=== PATIENT | female | born 1990 | race Caucasian/White ===

== ENCOUNTER → 2018-09-07 13:38 | Outpatient (CLI) | payer OTHER, MEDICAID, SELFPAY ==
--- NOTE | 2018-09-07 13:39 | DI.US.S_ITS ---
LIMITED ULTRASOUND OF LEFT BREAST: 09/07/2018 CLINICAL: Palpable left breast lump. No prior exams were available for comparison. Real-time ultrasound of the left breast 12 o'clock region was performed on the area of interest. IMPRESSION: NEGATIVE There is no sonographic evidence of malignancy. There is no abnormality seen in the left breast to correspond with the palpable abnormality at 12 o'clock, however, clinical followup is recommended. This exam was interpreted at Station ID: [id number]. Electronically Signed By: Lester lopez/kobi:09/07/2018 16:54:03 letter sent: Clinical Evaluation Ultrasound BI-RADS: 1 Negative
--- NOTE | 2018-09-07 13:40 | DI.RAD.S_ITS ---
PROCEDURE: XR HIP W PEL IF DONE RT 2V INDICATIONS: Right hip pain, FH of hip dyspasia TECHNIQUE: AP pelvis with lateral view(s) of the right hip(s). COMPARISON: None. FINDINGS: Bones: No fractures or dislocations. Pelvic ring appears intact. No suspicious bony lesions. No evidence of hip dysplasia. Normal center edge angle. Soft tissues: The visualized bowel gas pattern is normal. No suspicious soft tissue calcifications. Incidental IUD IMPRESSION: Minimal degenerative spurring and subchondral sclerosis, probably age appropriate. No evidence of hip dysplasia. Dictated by: Star Guadarrama M.D. on 09/07/2018 at 14:28 Approved by: Star Guadarrama M.D. on 09/07/2018 at 14:33
[2018-09-07 15:27] LABS: Add Manual Diff / Slide Review NO; Basophils Percent Auto 0.6 % (0-2); Eosinophils Percent Auto 0.9 % (2-4); Hematocrit 39.4 % (36-46); Hemoglobin 12.8 g/dL (12.0-16.0); Lymphocytes Percent Auto 21.1 % (25-40); Mean Corpuscular HGB Conc 32.5 % (30-36); Mean Corpuscular Hemoglobin 30.6 PG (26-34); Mean Corpuscular Volume 94.3 fL (80-100); Monocytes Percent Auto 7.4 % (3-14); Neutrophils Absolute Auto 6300 /uL (3000-5900); Platelet Count 283 X10^3/uL (150-400); Red Blood Cell Count 4.18 X10^6/uL (4.0-5.2); Red Cell Distribution Width 13.1 % (11.6-14.8)
[2018-09-07 15:43] LABS: Alanine Aminotransferase 28 IU/L (9-52); Albumin 4.8 g/dL (3.5-5.0); Albumin Globulin Ratio 1.8 (1.0-2.8); Alkaline Phosphatase 40 U/L (38-126); Aspartate Aminotransferase 22 IU/L (14-36); BUN Creatinine Ratio 18.3 (6-22); Bilirubin Total 0.4 mg/dL (0.2-1.3); Blood Urea Nitrogen 11 mg/dL (7-17); Calcium 9.2 mg/dL (8.4-10.2); Carbon Dioxide 27 mmol/L (22-32); Chloride 104 mmol/L (98-107); Estimated Glomerular Filt Rate > 60.0 mL/min (>60); Globulin 2.6 g/dL (1.7-4.1); Glucose 80 mg/dL (70-100); HEMOLYSIS < 15 (0-50); Potassium 3.6 mmol/L (3.4-5.1); Sodium 145 mmol/L (137-145); Total Protein 7.4 g/dL (6.3-8.2)
[2018-09-07 16:35] LABS: TSH w/ Reflex to FT4 0.76 uIU/mL (0.47-4.68)
== END ==
PROVIDERS: Family Provider Family Medicine; PCP Family Medicine; Visit Provider Registered Nurse
DX: N63.20 Unspecified lump in the left breast, unspecified quadrant (principal); M25.551 Pain in right hip; F41.9 Anxiety disorder, unspecified; R53.83 Other fatigue
CPT/HCPCS: 36415; 73502; 76642; 80053; 84443; 85025

== ENCOUNTER 2018-12-27 12:45 | Outpatient (RCR) | payer OTHER, MEDICAID, SELFPAY ==
--- NOTE | 2018-10-24 14:30 | PT.OIE ---
Current Diagnoses Lesion of sciatic nerve, right lower limb (10/24/18) Pain in unspecified hip (10/24/18) Muscle weakness (generalized) (10/24/18) Past Medical History (Last Reviewed 08/11/18 @ 14:37 by Silvia Eldridge DO) Acne (Chronic) Ankle pain (Chronic ~2007) Asthma (Chronic) Eczema (Chronic ~2013) Vision disorder (Chronic) Vaginal delivery (Resolved) Past Surgical History (Last Reviewed 08/11/18 @ 14:37 by Silvia Eldridge DO) Anesthesia (Resolved) History of tonsillectomy (Resolved) Provider Visit Care Team Role Provider Type Silvia Eldridge DO Attending Provider Physician Primary Care Provider Specialty: [facility] Practice Address: [address] [place] [address], [facility] Email: [email or web address] Physical Therapy Initial Evaluation PT-OP-A Visit Information Start: 10/25/18 09:38 Freq: Status: Active Protocol: Document 10/24/18 13:45 DCW (Rec: 10/25/18 10:19 [facility] [id number]) Out-Patient Physical Therapy Visit Information Visit Information Visit Type Initial Evaluation Visit Start Time 13:45 Visit Stop Time 14:30 Total Visit Minutes 45 Visit Number 1 Number of SECURITY AUDITOR Visits 0 Evaluation Information Evaluation Date 10/24/18 PT-OP-B Current Condition Start: 10/25/18 09:38 Freq: Status: Active Protocol: Document 10/24/18 13:45 DCW (Rec: 10/25/18 10:19 [facility] [id number]) Current Condition History of Current Condition Onset Date 5 year history Current Complaints Posterior right hip pain with associated radicular right leg symptoms History of Current Condition Pt is a 28 year old female who reports she began having occasional right hip pain periodically following the of her first child five years ago. Pt admits that she is able to work through the pain and do what I need to, but when she has a flare-up, it is difficult to hold her one-year old son or to walk around too much. Pt notes that recently, she has noticed increased frequency of flare- ups, which can last up to a week, or she can go three weeks without any pain. Patient feels pain go from my back hip to my groin, and also notes radiating pain down to her knee and ankle. Pt notes that prior to giving last year, she was seen at this clinic for hip and back pain, and has continued to perform her HEP from then, which includes cat/camel, child's pose, and adductor ball squeeze. Treatment Goals Patient/Caregiver Goals Pt would like to decrease frequency of flare-ups, and to be able to walk and hold her son without worrying about increased pain. Prior Functional Status Baseline Function- ADL's Independent Baseline Function- Mobility Independent Current Functional Impairments (Reported) Functional Limitations- ADL's Housework will occasionally cause flare-ups, as well as pushing her son on a bike PT-OP-C Subjective Start: 10/25/18 09:38 Freq: Status: Active Protocol: Document 10/24/18 13:45 DCW (Rec: 10/25/18 10:19 [facility] [id number]) OP-PT Pain Assessment Pain Assessment Grid Paper Pain Assessment Grid Completed Yes Location Right Posterior Hip Intensity 7 Scale Used Numeric (1 - 10) Description Aching Sharp Shooting Frequency Occasional Radiating Location Right knee and ankle Pain Alleviating Factors Heat PT-OP-F Manual Assessment Start: 10/25/18 09:38 Freq: Status: Active Protocol: Document 10/24/18 13:45 DCW (Rec: 10/25/18 10:19 [facility] [id number]) Manual Assessments Soft Tissue Assessment Soft Tissue Mobility Assessment Mild tone and 1/4 - Complaint of pain with palpation of right Quadratus Lumborum Severe tone and 3/4 - Wincing and withdraw with palpation of right Piriformis Joint Mobility Assessment Joint Mobility Assessment No pain with palpation of SI or lumbar spine, no pain with hip PROM, loud popping bilaterally in hips with PROM PT-OP-L Special Tests Start: 10/25/18 09:38 Freq: Status: Active Protocol: Document 10/24/18 13:45 DCW (Rec: 10/25/18 10:19 [facility] [id number]) Special Tests Lumbar Spine Special Tests Compression Test Results Negative Straight Leg Raise Test Results Pain in R Slump Test Results Pain in R Hip Special Tests Piriformis Test Results Recreates radicular pain with palpation Lateral SI compression Test Results Negative LILIA Test Results Negative Comments Joint popping bilaterally PT-OP-M Strength Start: 10/25/18 09:38 Freq: Status: Active Protocol: Document 10/24/18 13:45 DCW (Rec: 10/25/18 10:19 [facility] [id number]) Hip Strength Hip Manual Muscle Testing Right Flexion (L2) 5 Normal Abduction 4 Good Adduction 5 Normal External Rotation 4 Good Internal Rotation 4 Good Left Flexion (L2) 5 Normal Abduction 4+ Good+ Adduction 5 Normal External Rotation 4+ Good+ Internal Rotation 4+ Good+ Knee Strength Knee Manual Muscle Testing Right Flexion (S2) 4 Good Extension (L3) 4+ Good+ Left Flexion (S2) 4 Good Extension (L3) 4+ Good+ Ankle/Foot Strength Ankle and Foot Manual Muscle Testing Right Dorsiflexion (L4) 4+ Good+ Plantarflexion (S1) 4+ Good+ Left Dorsiflexion (L4) 4+ Good+ Plantarflexion (S1) 4+ Good+ PT-OP-Q Treatments Start: 10/25/18 09:38 Freq: Status: Active Protocol: Document 10/24/18 13:45 DCW (Rec: 10/25/18 10:19 [facility] [id number]) Therapeutic Exercises Supine Exercises Piriformis Stretch Supine Exercise Name Figure-4, Yyxz-cj-Ztbraapg Shoulder Side right Sidelying Exercises Reverse Clamshell Sidelying Exercise Name Reverse Clamshell Side right Clamshell Sidelying Exercise Name Clamshell Side right Sitting Exercises Piriformis Stretch Sitting Exercise Name Seated Figure-4 Side right PT-OP-T Assessment and Plan Start: 10/25/18 09:38 Freq: Status: Active Protocol: Document 10/24/18 13:45 DCW (Rec: 10/25/18 10:19 [facility] [id number]) Physical Therapy Assessment Rehab Potential Rehabilitation Potential Excellent Evaluation Complexity Number of Personal Factors/Comorbidities 1-2 Number of Body Systems Impaired 1-2 Clinical Presentation at Evaluation Unstable Impairments Impairments Pain Soft Tissue Mobility Tone Goals Four Impairment Tenderness to palpation Fci Goal (LTG) Palpation of piriformis to 1/4 - Complaint of pain Three Impairment LE weakness Fci Goal (LTG) LE MMT grossly 5/5 LTG Duration 12/25/18 Two Impairment Activity participation Short Term Goal (STG) Pt to report no increased pain with housework over a period of two weeks STG Duration 11/24/18 Tobacco Weigher Goal (LTG) Pt to report no increase pain when pushing her son on a bike over a period of one month LTG Duration 12/25/18 One Impairment Pt does not have an appropriate home exercise program Short Term Goal (STG) Pt to be independent and complaint with an appropriate HEP STG Duration 11/24/18 Assessment Summary Assessment Pt presents with signs and symptoms consistent with Piriformis syndrome. Differential Dx may also be SI dysfunction, especially due to the instigating factor seemingly being childbirth, however no pain could be reproduced at the SI joint with any special testing, palpation, or mobilization of the SI joint. Additionally, pt has severe tone through her right piriformis, and feels some relief with piriformis stretching. Pt should benefit from skilled therapy focusing on manual therapy, flexibility to decrease tone, and improving hip strength. Physical Therapy Plan Frequency and Duration Frequency of Treatment 2x/Week Duration of Treatment 2 Months Plan of Care Start Date 10/24/18 Plan of Care End Date 12/25/18 Therapeutic Interventions Therapeutic Interventions Home Exercise Program Joint Mobilizations Manual Therapy Patient/Caregiver Education Self-Care/Home Management Soft Tissue Mobilization Therapeutic Activities Therapeutic Exercises Modalities Cold Pack/Ice Massage Electric Stimulation Hot Packs Ultrasound Next Visit Focus/Plan Next Note Type Treatment Note Next Visit Plan STM, Stretching, strengthening
--- NOTE | 2018-10-24 14:30 | PT.OPPOC ---
Current Diagnoses Lesion of sciatic nerve, right lower limb (10/24/18) Pain in unspecified hip (10/24/18) Muscle weakness (generalized) (10/24/18) Provider Visit Care Team Role Provider Type Silvia Eldridge DO Attending Provider Physician Primary Care Provider Specialty: Family Practice Address: [address] [place] [address], [address] Email: [email or web address] Plan Of Care PT-OP-T Assessment and Plan Start: 10/25/18 09:38 Freq: Status: Active Protocol: Document 10/24/18 13:45 DCW (Rec: 10/25/18 10:19 [facility] [id number]) Physical Therapy Assessment Rehab Potential Rehabilitation Potential Excellent Evaluation Complexity Number of Personal Factors/Comorbidities 1-2 Number of Body Systems Impaired 1-2 Clinical Presentation at Evaluation Unstable Impairments Impairments Pain Soft Tissue Mobility Tone Goals Four Impairment Tenderness to palpation Accounts Payable Coordinator Goal (LTG) Palpation of piriformis to 1/4 - Complaint of pain Three Impairment LE weakness Mcc Goal (LTG) LE MMT grossly 5/5 LTG Duration 12/25/18 Two Impairment Activity participation Short Term Goal (STG) Pt to report no increased pain with housework over a period of two weeks STG Duration 11/24/18 Mcc Goal (LTG) Pt to report no increase pain when pushing her son on a bike over a period of one month LTG Duration 12/25/18 One Impairment Pt does not have an appropriate home exercise program Short Term Goal (STG) Pt to be independent and complaint with an appropriate HEP STG Duration 11/24/18 Assessment Summary Assessment Pt presents with signs and symptoms consistent with Piriformis syndrome. Differential Dx may also be SI dysfunction, especially due to the instigating factor seemingly being childbirth, however no pain could be reproduced at the SI joint with any special testing, palpation, or mobilization of the SI joint. Additionally, pt has severe tone through her right piriformis, and feels some relief with piriformis stretching. Pt should benefit from skilled therapy focusing on manual therapy, flexibility to decrease tone, and improving hip strength. Physical Therapy Plan Frequency and Duration Frequency of Treatment 2x/Week Duration of Treatment 2 Months Plan of Care Start Date 10/24/18 Plan of Care End Date 12/25/18 Therapeutic Interventions Therapeutic Interventions Home Exercise Program Joint Mobilizations Manual Therapy Patient/Caregiver Education Self-Care/Home Management Soft Tissue Mobilization Therapeutic Activities Therapeutic Exercises Modalities Cold Pack/Ice Massage Electric Stimulation Hot Packs Ultrasound Next Visit Focus/Plan Next Note Type Treatment Note Next Visit Plan STM, Stretching, strengthening Plan of Care Dates Plan of Care Start Date 10/24/18 Plan of Care End Date 12/25/18 Please Sign and Return: I have reviewed this Plan of Care and certify that the skilled therapy services above are required to meet the patient?s needs. Physician Signature Date Printed Name and Credentials Clinical Instructor Signature Printed Name and Credentials
--- NOTE | 2018-10-27 14:31 | PT.OTN ---
Current Diagnoses Pain in unspecified hip (10/27/18) Physical Therapy Treatment Note PT-OP-A Visit Information Start: 10/25/18 09:38 Freq: Status: Active Protocol: Document 10/27/18 13:45 DCW (Rec: 10/27/18 14:31 [facility] [id number]) Out-Patient Physical Therapy Visit Information Visit Information Visit Type Treatment Note Visit Start Time 13:45 Visit Stop Time 14:30 Total Visit Minutes 45 Visit Number 2 Number of VICE PRESIDENT DIVERSITY Visits 0 Evaluation Information Evaluation Date 10/24/18 PT-OP-B Current Condition Start: 10/25/18 09:38 Freq: Status: Active Protocol: Document 10/24/18 13:45 DCW (Rec: 10/25/18 10:19 [facility] [id number]) Current Condition History of Current Condition Onset Date 5 year history Current Complaints Posterior right hip pain with associated radicular right leg symptoms History of Current Condition Pt is a 28 year old female who reports she began having occasional right hip pain periodically following the of her first child five years ago. Pt admits that she is able to work through the pain and do what I need to, but when she has a flare-up, it is difficult to hold her one-year old son or to walk around too much. Pt notes that recently, she has noticed increased frequency of flare- ups, which can last up to a week, or she can go three weeks without any pain. Patient feels pain go from my back hip to my groin, and also notes radiating pain down to her knee and ankle. Pt notes that prior to giving last year, she was seen at this clinic for hip and back pain, and has continued to perform her HEP from then, which includes cat/camel, child's pose, and adductor ball squeeze. Treatment Goals Patient/Caregiver Goals Pt would like to decrease frequency of flare-ups, and to be able to walk and hold her son without worrying about increased pain. Prior Functional Status Baseline Function- ADL's Independent Baseline Function- Mobility Independent Current Functional Impairments (Reported) Functional Limitations- ADL's Housework will occasionally cause flare-ups, as well as pushing her son on a bike PT-OP-C Subjective Start: 10/25/18 09:38 Freq: Status: Active Protocol: Document 10/27/18 13:45 DCW (Rec: 10/27/18 14:31 [facility] [id number]) OP-PT Subjective Patient Comments Patient Comments Pt reports she is feeling a little tight today. PT-OP-F Manual Assessment Start: 10/25/18 09:38 Freq: Status: Active Protocol: Document 10/24/18 13:45 DCW (Rec: 10/25/18 10:19 [facility] [id number]) Manual Assessments Soft Tissue Assessment Soft Tissue Mobility Assessment Mild tone and 1/4 - Complaint of pain with palpation of right Quadratus Lumborum Severe tone and 3/4 - Wincing and withdraw with palpation of right Piriformis Joint Mobility Assessment Joint Mobility Assessment No pain with palpation of SI or lumbar spine, no pain with hip PROM, loud popping bilaterally in hips with PROM PT-OP-L Special Tests Start: 10/25/18 09:38 Freq: Status: Active Protocol: Document 10/24/18 13:45 DCW (Rec: 10/25/18 10:19 [facility] [id number]) Special Tests Lumbar Spine Special Tests Compression Test Results Negative Straight Leg Raise Test Results Pain in R Slump Test Results Pain in R Hip Special Tests Piriformis Test Results Recreates radicular pain with palpation Lateral SI compression Test Results Negative LILIA Test Results Negative Comments Joint popping bilaterally PT-OP-M Strength Start: 10/25/18 09:38 Freq: Status: Active Protocol: Document 10/24/18 13:45 DCW (Rec: 10/25/18 10:19 [facility] [id number]) Hip Strength Hip Manual Muscle Testing Right Flexion (L2) 5 Normal Abduction 4 Good Adduction 5 Normal External Rotation 4 Good Internal Rotation 4 Good Left Flexion (L2) 5 Normal Abduction 4+ Good+ Adduction 5 Normal External Rotation 4+ Good+ Internal Rotation 4+ Good+ Knee Strength Knee Manual Muscle Testing Right Flexion (S2) 4 Good Extension (L3) 4+ Good+ Left Flexion (S2) 4 Good Extension (L3) 4+ Good+ Ankle/Foot Strength Ankle and Foot Manual Muscle Testing Right Dorsiflexion (L4) 4+ Good+ Plantarflexion (S1) 4+ Good+ Left Dorsiflexion (L4) 4+ Good+ Plantarflexion (S1) 4+ Good+ PT-OP-Q Treatments Start: 10/25/18 09:38 Freq: Status: Active Protocol: Document 10/27/18 13:45 DCW (Rec: 10/27/18 14:31 [facility] [id number]) Gym Equipment Cable Column (Body Solid) Hip Abduction Resistance 30# Reps/Time R hip clicking with no pain Shuttle Recovery Unilateral Squats Resistance 62# Shuttle Recovery Platform Stable Bilateral Squats Resistance 100# Shuttle Recovery Platform Stable Therapeutic Ball Bridging /c Hamstring curls Exercise Details Bridging /c HS curls Ball Size/Color Blue - 45 cm Body Position Supine Bridging Exercise Details Bridging /c feet on T-ball Ball Size/Color Blue - 45 cm Body Position Supine Therapeutic Exercises Supine Exercises Piriformis Stretch Supine Exercise Name Pdyz-xh-Gwmwuwte Shoulder Side right Standing Exercises Hip Internal Rotation Standing Exercise Name Knee on stool, rotation vs resistance Side right Resistance Yellow Equipment Used T-band Other Exercises Resisted Forward/Retro walking Other Exercise Name Resisted Forward/Retro walking Resistance Yellow Equipment Used T-band Resisted Side-stepping Other Exercise Name Resisted side-stepping Resistance Yellow Equipment Used T-band Manual Therapy Treatment Soft Tissue Mobilization Piriformis Body Location R Piriformis Mobilization Type Cross-Friction Sustained Pressure Intensity/Depth Deep Body Position Side-lying Manual Traction Lower Extremity Details Lateral Hip traction /c strap Body Position Supine PT-OP-T Assessment and Plan Start: 10/25/18 09:38 Freq: Status: Active Protocol: Document 10/27/18 13:45 DCW (Rec: 10/27/18 14:31 [facility] [id number]) Physical Therapy Assessment Impairments Impairments Pain Soft Tissue Mobility Tone Goals Four Impairment Tenderness to palpation Correction Goal (LTG) Palpation of piriformis to 1/4 - Complaint of pain Three Impairment LE weakness Correction Goal (LTG) LE MMT grossly 5/5 LTG Duration 12/25/18 Two Impairment Activity participation Short Term Goal (STG) Pt to report no increased pain with housework over a period of two weeks STG Duration 11/24/18 Stewardesses Teacher Goal (LTG) Pt to report no increase pain when pushing her son on a bike over a period of one month LTG Duration 12/25/18 One Impairment Pt does not have an appropriate home exercise program Short Term Goal (STG) Pt to be independent and complaint with an appropriate HEP STG Duration 11/24/18 Assessment Summary Assessment Pt tolerated manual and TherEx well, reported some muscle soreness/fatigue but no increased hip pain or radicular symptoms. Physical Therapy Plan Frequency and Duration Frequency of Treatment 2x/Week Duration of Treatment 2 Months Plan of Care Start Date 10/24/18 Plan of Care End Date 12/25/18 Therapeutic Interventions Therapeutic Interventions Home Exercise Program Joint Mobilizations Manual Therapy Patient/Caregiver Education Self-Care/Home Management Soft Tissue Mobilization Therapeutic Activities Therapeutic Exercises Modalities Cold Pack/Ice Massage Electric Stimulation Hot Packs Ultrasound Next Visit Focus/Plan Next Note Type Treatment Note Next Visit Plan STM, Stretching, strengthening
--- NOTE | 2018-11-03 17:15 | PT.OTN ---
Current Diagnoses Pain in unspecified hip (11/03/18) Physical Therapy Treatment Note PT-OP-A Visit Information Start: 10/25/18 09:38 Freq: Status: Active Protocol: Document 11/03/18 13:45 HH (Rec: 11/03/18 17:15 HH [email or web address]) Out-Patient Physical Therapy Visit Information Visit Information Visit Type Treatment Note Visit Start Time 13:45 Visit Stop Time 14:00 Total Visit Minutes 45 Visit Number 3 PT-OP-B Current Condition Start: 10/25/18 09:38 Freq: Status: Active Protocol: Document 10/24/18 13:45 DCW (Rec: 10/25/18 10:19 DCW [id number]) Current Condition History of Current Condition Onset Date 5 year history Current Complaints Posterior right hip pain with associated radicular right leg symptoms History of Current Condition Pt is a 28 year old female who reports she began having occasional right hip pain periodically following the of her first child five years ago. Pt admits that she is able to work through the pain and do what I need to, but when she has a flare-up, it is difficult to hold her one-year old son or to walk around too much. Pt notes that recently, she has noticed increased frequency of flare- ups, which can last up to a week, or she can go three weeks without any pain. Patient feels pain go from my back hip to my groin, and also notes radiating pain down to her knee and ankle. Pt notes that prior to giving last year, she was seen at this clinic for hip and back pain, and has continued to perform her HEP from then, which includes cat/camel, child's pose, and adductor ball squeeze. Treatment Goals Patient/Caregiver Goals Pt would like to decrease frequency of flare-ups, and to be able to walk and hold her son without worrying about increased pain. Prior Functional Status Baseline Function- ADL's Independent Baseline Function- Mobility Independent Current Functional Impairments (Reported) Functional Limitations- ADL's Housework will occasionally cause flare-ups, as well as pushing her son on a bike PT-OP-C Subjective Start: 10/25/18 09:38 Freq: Status: Active Protocol: Document 11/03/18 13:45 HH (Rec: 11/03/18 17:15 HH [email or web address]) OP-PT Subjective Patient Comments Patient Comments Pt reports My back pain was doing pretty good last week but i feel pretty sore since yesterday 03/31. My back pain always get worse when i stand on my R side for a long time. It feels like it gets stuck. Patient Reported Progress Improving PT-OP-F Manual Assessment Start: 10/25/18 09:38 Freq: Status: Active Protocol: Document 10/24/18 13:45 DCW (Rec: 10/25/18 10:19 DCW [id number]) Manual Assessments Soft Tissue Assessment Soft Tissue Mobility Assessment Mild tone and 1/4 - Complaint of pain with palpation of right Quadratus Lumborum Severe tone and 3/4 - Wincing and withdraw with palpation of right Piriformis Joint Mobility Assessment Joint Mobility Assessment No pain with palpation of SI or lumbar spine, no pain with hip PROM, loud popping bilaterally in hips with PROM PT-OP-L Special Tests Start: 10/25/18 09:38 Freq: Status: Active Protocol: Document 10/24/18 13:45 DCW (Rec: 10/25/18 10:19 DCW [id number]) Special Tests Lumbar Spine Special Tests Compression Test Results Negative Straight Leg Raise Test Results Pain in R Slump Test Results Pain in R Hip Special Tests Piriformis Test Results Recreates radicular pain with palpation Lateral SI compression Test Results Negative LILIA Test Results Negative Comments Joint popping bilaterally PT-OP-M Strength Start: 10/25/18 09:38 Freq: Status: Active Protocol: Document 10/24/18 13:45 DCW (Rec: 10/25/18 10:19 DC [id number]) Hip Strength Hip Manual Muscle Testing Right Flexion (L2) 5 Normal Abduction 4 Good Adduction 5 Normal External Rotation 4 Good Internal Rotation 4 Good Left Flexion (L2) 5 Normal Abduction 4+ Good+ Adduction 5 Normal External Rotation 4+ Good+ Internal Rotation 4+ Good+ Knee Strength Knee Manual Muscle Testing Right Flexion (S2) 4 Good Extension (L3) 4+ Good+ Left Flexion (S2) 4 Good Extension (L3) 4+ Good+ Ankle/Foot Strength Ankle and Foot Manual Muscle Testing Right Dorsiflexion (L4) 4+ Good+ Plantarflexion (S1) 4+ Good+ Left Dorsiflexion (L4) 4+ Good+ Plantarflexion (S1) 4+ Good+ PT-OP-Q Treatments Start: 10/25/18 09:38 Freq: Status: Active Protocol: Document 11/03/18 13:45 (Rec: 11/03/18 17:15 [email or web address]) Therapeutic Exercises Supine Exercises resisted figure 4 ER Side right Resistance manual resistance Reps/Minutes 2 mins Prone Exercises prone hip extension Side right Resistance manual resistance Reps/Minutes 5 mins Sidelying Exercises Clamshell Side right Resistance manual resistance Reps/Minutes 2 mins Standing Exercises resisted R hip ER with squat Side right Resistance manual resistance Reps/Minutes 5 mins Manual Therapy Treatment Soft Tissue Mobilization Piriformis Mobilization Type Cross-Friction Intensity/Depth Moderate Body Position Sidelying Comments along with active R hip ER Joint Mobilizations R posterior tilt Joint R SI Direction posterior tilt Grade III Body Position Sidelying Reps/Duration 5 mins Comments SL assisted R posterior pelvic tilt Other Other Manual Treatments MET on R hip ER and extension in prone and standing. PT-OP-T Assessment and Plan Start: 10/25/18 09:38 Freq: Status: Active Protocol: Document 11/03/18 13:45 (Rec: 11/03/18 17:15 [email or web address]) Physical Therapy Assessment Progress Towards Goals Progress Towards Goals Progressing Toward Goals Assessment Summary Assessment Pt reports her pain tends to increase during lumbar and R hip extension. Upon assessment , pt demonstrates excessive lumbar paraspinals contraction during R hip extension in prone which reproduces her back pain. Pt is then instructed to use abdominal brace before R hip extension in prone who reports her pain decreases significantly. Pt possibly presents slight Anterior pelvic innominate which excessively exerts mechanical stress to her R SI joint. Pt also reports her R back pain decreases to 1-2/10 after 5 mins of resisted R hip flexion. Pt cont requires skilled physical therapy for neuromuscular education on R hip stabilizers and abdominal muscles to prevent excessive pressure at her R SI joint. Physical Therapy Plan Next Visit Focus/Plan Next Note Type Treatment Note Next Visit Plan neuro margie on R posterior pelvic tilt isometric/ isotonic exercises on R hip flexors R hip stabilizers strengthening (stagger stance during squat )
--- NOTE | 2018-11-10 14:31 | PT.OTN ---
Current Diagnoses Pain in unspecified hip (11/10/18) Physical Therapy Treatment Note PT-OP-A Visit Information Start: 10/25/18 09:38 Freq: Status: Active Protocol: Document 11/10/18 13:45 DCW (Rec: 11/10/18 14:30 DCW [id number]) Out-Patient Physical Therapy Visit Information Visit Information Visit Type Treatment Note Visit Start Time 13:45 Visit Stop Time 14:30 Total Visit Minutes 45 Visit Number 4 Evaluation Information Evaluation Date 10/24/18 PT-OP-B Current Condition Start: 10/25/18 09:38 Freq: Status: Active Protocol: Document 10/24/18 13:45 DCW (Rec: 10/25/18 10:19 DCW [id number]) Current Condition History of Current Condition Onset Date 5 year history Current Complaints Posterior right hip pain with associated radicular right leg symptoms History of Current Condition Pt is a 28 year old female who reports she began having occasional right hip pain periodically following the of her first child five years ago. Pt admits that she is able to work through the pain and do what I need to, but when she has a flare-up, it is difficult to hold her one-year old son or to walk around too much. Pt notes that recently, she has noticed increased frequency of flare- ups, which can last up to a week, or she can go three weeks without any pain. Patient feels pain go from my back hip to my groin, and also notes radiating pain down to her knee and ankle. Pt notes that prior to giving last year, she was seen at this clinic for hip and back pain, and has continued to perform her HEP from then, which includes cat/camel, child's pose, and adductor ball squeeze. Treatment Goals Patient/Caregiver Goals Pt would like to decrease frequency of flare-ups, and to be able to walk and hold her son without worrying about increased pain. Prior Functional Status Baseline Function- ADL's Independent Baseline Function- Mobility Independent Current Functional Impairments (Reported) Functional Limitations- ADL's Housework will occasionally cause flare-ups, as well as pushing her son on a bike PT-OP-C Subjective Start: 10/25/18 09:38 Freq: Status: Active Protocol: Document 11/10/18 13:45 DCW (Rec: 11/10/18 14:30 DCW [id number]) OP-PT Subjective Patient Comments Patient Comments Pt notes her back is feeling alright, but admits that she stil;l has pinching in her right posterior hip. PT-OP-F Manual Assessment Start: 10/25/18 09:38 Freq: Status: Active Protocol: Document 10/24/18 13:45 DCW (Rec: 10/25/18 10:19 DCW [id number]) Manual Assessments Soft Tissue Assessment Soft Tissue Mobility Assessment Mild tone and 1/4 - Complaint of pain with palpation of right Quadratus Lumborum Severe tone and 3/4 - Wincing and withdraw with palpation of right Piriformis Joint Mobility Assessment Joint Mobility Assessment No pain with palpation of SI or lumbar spine, no pain with hip PROM, loud popping bilaterally in hips with PROM PT-OP-L Special Tests Start: 10/25/18 09:38 Freq: Status: Active Protocol: Document 10/24/18 13:45 DCW (Rec: 10/25/18 10:19 DCW [id number]) Special Tests Lumbar Spine Special Tests Compression Test Results Negative Straight Leg Raise Test Results Pain in R Slump Test Results Pain in R Hip Special Tests Piriformis Test Results Recreates radicular pain with palpation Lateral SI compression Test Results Negative LILIA Test Results Negative Comments Joint popping bilaterally PT-OP-M Strength Start: 10/25/18 09:38 Freq: Status: Active Protocol: Document 10/24/18 13:45 DCW (Rec: 10/25/18 10:19 DCW [id number]) Hip Strength Hip Manual Muscle Testing Right Flexion (L2) 5 Normal Abduction 4 Good Adduction 5 Normal External Rotation 4 Good Internal Rotation 4 Good Left Flexion (L2) 5 Normal Abduction 4+ Good+ Adduction 5 Normal External Rotation 4+ Good+ Internal Rotation 4+ Good+ Knee Strength Knee Manual Muscle Testing Right Flexion (S2) 4 Good Extension (L3) 4+ Good+ Left Flexion (S2) 4 Good Extension (L3) 4+ Good+ Ankle/Foot Strength Ankle and Foot Manual Muscle Testing Right Dorsiflexion (L4) 4+ Good+ Plantarflexion (S1) 4+ Good+ Left Dorsiflexion (L4) 4+ Good+ Plantarflexion (S1) 4+ Good+ PT-OP-Q Treatments Start: 10/25/18 09:38 Freq: Status: Active Protocol: Document 11/10/18 13:45 DCW (Rec: 11/10/18 14:30 DCW [id number]) Gym Equipment Therapeutic Ball Bridging /c Hamstring curls Exercise Details Bridging /c HS curls Ball Size/Color Blue - 45 cm Body Position Supine Therapeutic Exercises Supine Exercises Piriformis Stretch Supine Exercise Name Figure-4 Side right Sitting Exercises Hip IR Sitting Exercise Name Seated hip IR Side bilateral Resistance Green Equipment Used T-band Other Exercises Resisted Forward/Retro walking Other Exercise Name Resisted Forward/Retro walking Resistance Green Equipment Used T-band Resisted Side-stepping Other Exercise Name Resisted side-stepping Resistance Green Equipment Used T-band Manual Therapy Treatment Soft Tissue Mobilization Psoas Body Location R Psoas Mobilization Type Strumming Sustained Pressure Intensity/Depth Deep Body Position Supine Piriformis Body Location R Piriformis Mobilization Type Cross-Friction Sustained Pressure Intensity/Depth Deep Body Position Side-lying Manual Traction Lower Extremity Details Lateral Hip traction /c strap Body Position Supine PT-OP-T Assessment and Plan Start: 10/25/18 09:38 Freq: Status: Active Protocol: Document 11/10/18 13:45 DCW (Rec: 11/10/18 14:30 DCW [id number]) Physical Therapy Assessment Impairments Impairments Pain Soft Tissue Mobility Tone Goals Four Impairment Tenderness to palpation Sales Department Supervisor Goal (LTG) Palpation of piriformis to 1/4 - Complaint of pain Three Impairment LE weakness Shelter Goal (LTG) LE MMT grossly 5/5 LTG Duration 12/25/18 Two Impairment Activity participation Short Term Goal (STG) Pt to report no increased pain with housework over a period of two weeks STG Duration 11/24/18 Sales Department Supervisor Goal (LTG) Pt to report no increase pain when pushing her son on a bike over a period of one month LTG Duration 12/25/18 One Impairment Pt does not have an appropriate home exercise program Short Term Goal (STG) Pt to be independent and complaint with an appropriate HEP STG Duration 11/24/18 Assessment Summary Assessment Pt tolerated manual therapy well today, works on decreasing muscle tone and tension on innominate. Physical Therapy Plan Frequency and Duration Frequency of Treatment 2x/Week Duration of Treatment 2 Months Plan of Care Start Date 10/24/18 Plan of Care End Date 12/25/18 Therapeutic Interventions Therapeutic Interventions Home Exercise Program Joint Mobilizations Manual Therapy Patient/Caregiver Education Self-Care/Home Management Soft Tissue Mobilization Therapeutic Activities Therapeutic Exercises Modalities Cold Pack/Ice Massage Electric Stimulation Hot Packs Ultrasound Next Visit Focus/Plan Next Note Type Treatment Note Next Visit Plan STM, Stretching, strengthening
--- NOTE | 2018-11-24 14:28 | PT.OTN ---
Current Diagnoses Pain in unspecified hip (11/24/18) Physical Therapy Treatment Note PT-OP-A Visit Information Start: 10/25/18 09:38 Freq: Status: Active Protocol: Document 11/24/18 13:45 DCW (Rec: 11/24/18 14:28 DCW [id number]) Out-Patient Physical Therapy Visit Information Visit Information Visit Type Treatment Note Visit Start Time 13:45 Visit Stop Time 14:30 Total Visit Minutes 45 Visit Number 5 Evaluation Information Evaluation Date 10/24/18 PT-OP-B Current Condition Start: 10/25/18 09:38 Freq: Status: Active Protocol: Document 10/24/18 13:45 DCW (Rec: 10/25/18 10:19 DCW [id number]) Current Condition History of Current Condition Onset Date 5 year history Current Complaints Posterior right hip pain with associated radicular right leg symptoms History of Current Condition Pt is a 28 year old female who reports she began having occasional right hip pain periodically following the of her first child five years ago. Pt admits that she is able to work through the pain and do what I need to, but when she has a flare-up, it is difficult to hold her one-year old son or to walk around too much. Pt notes that recently, she has noticed increased frequency of flare- ups, which can last up to a week, or she can go three weeks without any pain. Patient feels pain go from my back hip to my groin, and also notes radiating pain down to her knee and ankle. Pt notes that prior to giving last year, she was seen at this clinic for hip and back pain, and has continued to perform her HEP from then, which includes cat/camel, child's pose, and adductor ball squeeze. Treatment Goals Patient/Caregiver Goals Pt would like to decrease frequency of flare-ups, and to be able to walk and hold her son without worrying about increased pain. Prior Functional Status Baseline Function- ADL's Independent Baseline Function- Mobility Independent Current Functional Impairments (Reported) Functional Limitations- ADL's Housework will occasionally cause flare-ups, as well as pushing her son on a bike PT-OP-C Subjective Start: 10/25/18 09:38 Freq: Status: Active Protocol: Document 11/24/18 13:45 DCW (Rec: 11/24/18 14:28 DCW [id number]) OP-PT Subjective Patient Comments Patient Comments Pt reports she has been experiencing less hip pinching , but has been sick the last few days, so she has been more achy. PT-OP-F Manual Assessment Start: 10/25/18 09:38 Freq: Status: Active Protocol: Document 10/24/18 13:45 DCW (Rec: 10/25/18 10:19 DCW [id number]) Manual Assessments Soft Tissue Assessment Soft Tissue Mobility Assessment Mild tone and 1/4 - Complaint of pain with palpation of right Quadratus Lumborum Severe tone and 3/4 - Wincing and withdraw with palpation of right Piriformis Joint Mobility Assessment Joint Mobility Assessment No pain with palpation of SI or lumbar spine, no pain with hip PROM, loud popping bilaterally in hips with PROM PT-OP-L Special Tests Start: 10/25/18 09:38 Freq: Status: Active Protocol: Document 10/24/18 13:45 DCW (Rec: 10/25/18 10:19 DCW [id number]) Special Tests Lumbar Spine Special Tests Compression Test Results Negative Straight Leg Raise Test Results Pain in R Slump Test Results Pain in R Hip Special Tests Piriformis Test Results Recreates radicular pain with palpation Lateral SI compression Test Results Negative LILIA Test Results Negative Comments Joint popping bilaterally PT-OP-M Strength Start: 10/25/18 09:38 Freq: Status: Active Protocol: Document 10/24/18 13:45 DCW (Rec: 10/25/18 10:19 DCW [id number]) Hip Strength Hip Manual Muscle Testing Right Flexion (L2) 5 Normal Abduction 4 Good Adduction 5 Normal External Rotation 4 Good Internal Rotation 4 Good Left Flexion (L2) 5 Normal Abduction 4+ Good+ Adduction 5 Normal External Rotation 4+ Good+ Internal Rotation 4+ Good+ Knee Strength Knee Manual Muscle Testing Right Flexion (S2) 4 Good Extension (L3) 4+ Good+ Left Flexion (S2) 4 Good Extension (L3) 4+ Good+ Ankle/Foot Strength Ankle and Foot Manual Muscle Testing Right Dorsiflexion (L4) 4+ Good+ Plantarflexion (S1) 4+ Good+ Left Dorsiflexion (L4) 4+ Good+ Plantarflexion (S1) 4+ Good+ PT-OP-Q Treatments Start: 10/25/18 09:38 Freq: Status: Active Protocol: Document 11/24/18 13:45 DCW (Rec: 11/24/18 14:28 DCW [id number]) Gym Equipment Therapeutic Ball Bridging /c Hamstring curls Exercise Details Bridging /c HS curls Ball Size/Color Blue - 45 cm Body Position Supine Therapeutic Exercises Supine Exercises Piriformis Stretch Supine Exercise Name Figure-4 Side right Other Exercises Resisted Forward/Retro walking Other Exercise Name Resisted Forward/Retro walking Resistance Green Equipment Used T-band Resisted Side-stepping Other Exercise Name Resisted side-stepping Resistance Green Equipment Used T-band Manual Therapy Treatment Soft Tissue Mobilization Psoas Body Location R Psoas Mobilization Type Strumming Sustained Pressure Intensity/Depth Deep Body Position Supine Piriformis Body Location R Piriformis Mobilization Type Cross-Friction Sustained Pressure Intensity/Depth Deep Body Position Prone Comments along with active R hip ER/IR Joint Mobilizations R posterior tilt Joint R SI Direction posterior tilt Grade III Body Position Supine Reps/Duration 5 mins Manual Traction Lower Extremity Details Lateral Hip traction /c strap Body Position Supine PT-OP-T Assessment and Plan Start: 10/25/18 09:38 Freq: Status: Active Protocol: Document 11/24/18 13:45 DCW (Rec: 11/24/18 14:28 DCW [id number]) Physical Therapy Assessment Impairments Impairments Pain Soft Tissue Mobility Tone Goals Four Impairment Tenderness to palpation [employer] Systems Programmer Goal (LTG) Palpation of piriformis to 1/4 - Complaint of pain Three Impairment LE weakness Mainframe Systems Programmer Goal (LTG) LE MMT grossly 5/5 LTG Duration 12/25/18 Two Impairment Activity participation Short Term Goal (STG) Pt to report no increased pain with housework over a period of two weeks STG Duration 11/24/18 Fdc Goal (LTG) Pt to report no increase pain when pushing her son on a bike over a period of one month LTG Duration 12/25/18 One Impairment Pt does not have an appropriate home exercise program Short Term Goal (STG) Pt to be independent and complaint with an appropriate HEP STG Duration 11/24/18 Assessment Summary Assessment Tolerated treatment well, pt had noticeable right posterior rotation of her ilium which responded well to manual therapy. Physical Therapy Plan Frequency and Duration Frequency of Treatment 2x/Week Duration of Treatment 2 Months Plan of Care Start Date 12/03/18 Plan of Care End Date 12/25/18 Therapeutic Interventions Therapeutic Interventions Home Exercise Program Joint Mobilizations Manual Therapy Patient/Caregiver Education Self-Care/Home Management Soft Tissue Mobilization Therapeutic Activities Therapeutic Exercises Modalities Cold Pack/Ice Massage Electric Stimulation Hot Packs Ultrasound Next Visit Focus/Plan Next Note Type Treatment Note Next Visit Plan STM, Stretching, strengthening
--- NOTE | 2018-11-28 14:29 | PT.OTN ---
Current Diagnoses Pain in unspecified hip (11/28/18) Physical Therapy Treatment Note PT-OP-A Visit Information Start: 10/25/18 09:38 Freq: Status: Active Protocol: Document 11/28/18 13:45 DCW (Rec: 11/28/18 14:29 DCW [id number]) Out-Patient Physical Therapy Visit Information Visit Information Visit Type Treatment Note Visit Start Time 13:45 Visit Stop Time 14:30 Total Visit Minutes 45 Visit Number 6 Evaluation Information Evaluation Date 10/24/18 PT-OP-B Current Condition Start: 10/25/18 09:38 Freq: Status: Active Protocol: Document 10/24/18 13:45 DCW (Rec: 10/25/18 10:19 DCW [id number]) Current Condition History of Current Condition Onset Date 5 year history Current Complaints Posterior right hip pain with associated radicular right leg symptoms History of Current Condition Pt is a 28 year old female who reports she began having occasional right hip pain periodically following the of her first child five years ago. Pt admits that she is able to work through the pain and do what I need to, but when she has a flare-up, it is difficult to hold her one-year old son or to walk around too much. Pt notes that recently, she has noticed increased frequency of flare- ups, which can last up to a week, or she can go three weeks without any pain. Patient feels pain go from my back hip to my groin, and also notes radiating pain down to her knee and ankle. Pt notes that prior to giving last year, she was seen at this clinic for hip and back pain, and has continued to perform her HEP from then, which includes cat/camel, child's pose, and adductor ball squeeze. Treatment Goals Patient/Caregiver Goals Pt would like to decrease frequency of flare-ups, and to be able to walk and hold her son without worrying about increased pain. Prior Functional Status Baseline Function- ADL's Independent Baseline Function- Mobility Independent Current Functional Impairments (Reported) Functional Limitations- ADL's Housework will occasionally cause flare-ups, as well as pushing her son on a bike PT-OP-C Subjective Start: 10/25/18 09:38 Freq: Status: Active Protocol: Document 11/28/18 13:45 DCW (Rec: 11/28/18 14:29 DCW [id number]) OP-PT Subjective Patient Comments Patient Comments Pt notes she has been noticing overall improvement, but will still get occasional pinching PT-OP-F Manual Assessment Start: 10/25/18 09:38 Freq: Status: Active Protocol: Document 10/24/18 13:45 DCW (Rec: 10/25/18 10:19 DCW [id number]) Manual Assessments Soft Tissue Assessment Soft Tissue Mobility Assessment Mild tone and 1/4 - Complaint of pain with palpation of right Quadratus Lumborum Severe tone and 3/4 - Wincing and withdraw with palpation of right Piriformis Joint Mobility Assessment Joint Mobility Assessment No pain with palpation of SI or lumbar spine, no pain with hip PROM, loud popping bilaterally in hips with PROM PT-OP-L Special Tests Start: 10/25/18 09:38 Freq: Status: Active Protocol: Document 10/24/18 13:45 DCW (Rec: 10/25/18 10:19 DCW [id number]) Special Tests Lumbar Spine Special Tests Compression Test Results Negative Straight Leg Raise Test Results Pain in R Slump Test Results Pain in R Hip Special Tests Piriformis Test Results Recreates radicular pain with palpation Lateral SI compression Test Results Negative LILIA Test Results Negative Comments Joint popping bilaterally PT-OP-M Strength Start: 10/25/18 09:38 Freq: Status: Active Protocol: Document 10/24/18 13:45 DCW (Rec: 10/25/18 10:19 DCW [id number]) Hip Strength Hip Manual Muscle Testing Right Flexion (L2) 5 Normal Abduction 4 Good Adduction 5 Normal External Rotation 4 Good Internal Rotation 4 Good Left Flexion (L2) 5 Normal Abduction 4+ Good+ Adduction 5 Normal External Rotation 4+ Good+ Internal Rotation 4+ Good+ Knee Strength Knee Manual Muscle Testing Right Flexion (S2) 4 Good Extension (L3) 4+ Good+ Left Flexion (S2) 4 Good Extension (L3) 4+ Good+ Ankle/Foot Strength Ankle and Foot Manual Muscle Testing Right Dorsiflexion (L4) 4+ Good+ Plantarflexion (S1) 4+ Good+ Left Dorsiflexion (L4) 4+ Good+ Plantarflexion (S1) 4+ Good+ PT-OP-Q Treatments Start: 10/25/18 09:38 Freq: Status: Active Protocol: Document 11/28/18 13:45 DCW (Rec: 11/28/18 14:29 DCW [id number]) Gym Equipment Shuttle Balance Red Comments Wide FIDELIA, Staggered Stance, Lateral Weight Shift Therapeutic Ball Bridging /c Hamstring curls Exercise Details Bridging /c HS curls Ball Size/Color Blue - 45 cm Body Position Supine Therapeutic Exercises Supine Exercises Piriformis Stretch Supine Exercise Name Figure-4 Side right Other Exercises Resisted Forward/Retro walking Other Exercise Name Resisted Forward/Retro walking Resistance Green Equipment Used T-band Resisted Side-stepping Other Exercise Name Resisted side-stepping Resistance Green Equipment Used T-band Manual Therapy Treatment Soft Tissue Mobilization Psoas Body Location R Psoas Mobilization Type Strumming Sustained Pressure Intensity/Depth Deep Body Position Supine Piriformis Body Location R Piriformis Mobilization Type Cross-Friction Sustained Pressure Intensity/Depth Deep Body Position Prone Comments along with active R hip ER/IR Joint Mobilizations R posterior tilt Joint R SI Direction posterior tilt Grade III Body Position Supine Reps/Duration 5 mins Manual Traction Lower Extremity Details Lateral Hip traction /c strap Body Position Supine PT-OP-T Assessment and Plan Start: 10/25/18 09:38 Freq: Status: Active Protocol: Document 11/28/18 13:45 DCW (Rec: 11/28/18 14:29 DCW [id number]) Physical Therapy Assessment Impairments Impairments Pain Soft Tissue Mobility Tone Goals Four Impairment Tenderness to palpation Plumbing Designer Goal (LTG) Palpation of piriformis to 1/4 - Complaint of pain Three Impairment LE weakness Plumbing Designer Goal (LTG) LE MMT grossly 5/5 LTG Duration 12/25/18 Two Impairment Activity participation Short Term Goal (STG) Pt to report no increased pain with housework over a period of two weeks STG Duration 11/24/18 Custodial Goal (LTG) Pt to report no increase pain when pushing her son on a bike over a period of one month LTG Duration 12/25/18 One Impairment Pt does not have an appropriate home exercise program Short Term Goal (STG) Pt to be independent and complaint with an appropriate HEP STG Duration 11/24/18 Assessment Summary Assessment Pt complained of mild light- headedness while performing resisted ambulation, however reported it faded quickly with a seated rest break and a cup of water. Pt notes that overall, she is noticing improved control, strength, and stability through her core and hips, and has noticed a substantial decrease in her hip pinching. Physical Therapy Plan Frequency and Duration Frequency of Treatment 2x/Week Duration of Treatment 2 Months Plan of Care Start Date 10/24/18 Plan of Care End Date 12/25/18 Therapeutic Interventions Therapeutic Interventions Home Exercise Program Joint Mobilizations Manual Therapy Patient/Caregiver Education Self-Care/Home Management Soft Tissue Mobilization Therapeutic Activities Therapeutic Exercises Modalities Cold Pack/Ice Massage Electric Stimulation Hot Packs Ultrasound Next Visit Focus/Plan Next Note Type Treatment Note Next Visit Plan STM, Stretching, strengthening
--- NOTE | 2018-12-01 14:28 | PT.OTN ---
Current Diagnoses Pain in unspecified hip (12/01/18) Physical Therapy Treatment Note PT-OP-A Visit Information Start: 10/25/18 09:38 Freq: Status: Active Protocol: Document 12/01/18 13:45 DCW (Rec: 12/01/18 14:28 DCW [id number]) Out-Patient Physical Therapy Visit Information Visit Information Visit Type Treatment Note Visit Start Time 13:45 Visit Stop Time 14:30 Total Visit Minutes 45 Visit Number 7 Evaluation Information Evaluation Date 10/24/18 PT-OP-B Current Condition Start: 10/25/18 09:38 Freq: Status: Active Protocol: Document 10/24/18 13:45 DCW (Rec: 10/25/18 10:19 DCW [id number]) Current Condition History of Current Condition Onset Date 5 year history Current Complaints Posterior right hip pain with associated radicular right leg symptoms History of Current Condition Pt is a 28 year old female who reports she began having occasional right hip pain periodically following the of her first child five years ago. Pt admits that she is able to work through the pain and do what I need to, but when she has a flare-up, it is difficult to hold her one-year old son or to walk around too much. Pt notes that recently, she has noticed increased frequency of flare- ups, which can last up to a week, or she can go three weeks without any pain. Patient feels pain go from my back hip to my groin, and also notes radiating pain down to her knee and ankle. Pt notes that prior to giving last year, she was seen at this clinic for hip and back pain, and has continued to perform her HEP from then, which includes cat/camel, child's pose, and adductor ball squeeze. Treatment Goals Patient/Caregiver Goals Pt would like to decrease frequency of flare-ups, and to be able to walk and hold her son without worrying about increased pain. Prior Functional Status Baseline Function- ADL's Independent Baseline Function- Mobility Independent Current Functional Impairments (Reported) Functional Limitations- ADL's Housework will occasionally cause flare-ups, as well as pushing her son on a bike PT-OP-C Subjective Start: 10/25/18 09:38 Freq: Status: Active Protocol: Document 12/01/18 13:45 DCW (Rec: 12/01/18 14:28 DCW [id number]) OP-PT Subjective Patient Comments Patient Comments Pt experiencing slightly more pinching the past few days. PT-OP-F Manual Assessment Start: 10/25/18 09:38 Freq: Status: Active Protocol: Document 10/24/18 13:45 DCW (Rec: 10/25/18 10:19 DCW [id number]) Manual Assessments Soft Tissue Assessment Soft Tissue Mobility Assessment Mild tone and 1/4 - Complaint of pain with palpation of right Quadratus Lumborum Severe tone and 3/4 - Wincing and withdraw with palpation of right Piriformis Joint Mobility Assessment Joint Mobility Assessment No pain with palpation of SI or lumbar spine, no pain with hip PROM, loud popping bilaterally in hips with PROM PT-OP-L Special Tests Start: 10/25/18 09:38 Freq: Status: Active Protocol: Document 10/24/18 13:45 DCW (Rec: 10/25/18 10:19 DCW [id number]) Special Tests Lumbar Spine Special Tests Compression Test Results Negative Straight Leg Raise Test Results Pain in R Slump Test Results Pain in R Hip Special Tests Piriformis Test Results Recreates radicular pain with palpation Lateral SI compression Test Results Negative LILIA Test Results Negative Comments Joint popping bilaterally PT-OP-M Strength Start: 10/25/18 09:38 Freq: Status: Active Protocol: Document 10/24/18 13:45 DCW (Rec: 10/25/18 10:19 DCW [id number]) Hip Strength Hip Manual Muscle Testing Right Flexion (L2) 5 Normal Abduction 4 Good Adduction 5 Normal External Rotation 4 Good Internal Rotation 4 Good Left Flexion (L2) 5 Normal Abduction 4+ Good+ Adduction 5 Normal External Rotation 4+ Good+ Internal Rotation 4+ Good+ Knee Strength Knee Manual Muscle Testing Right Flexion (S2) 4 Good Extension (L3) 4+ Good+ Left Flexion (S2) 4 Good Extension (L3) 4+ Good+ Ankle/Foot Strength Ankle and Foot Manual Muscle Testing Right Dorsiflexion (L4) 4+ Good+ Plantarflexion (S1) 4+ Good+ Left Dorsiflexion (L4) 4+ Good+ Plantarflexion (S1) 4+ Good+ PT-OP-Q Treatments Start: 10/25/18 09:38 Freq: Status: Active Protocol: Document 12/01/18 13:45 DCW (Rec: 12/01/18 14:28 DCW [id number]) Gym Equipment Shuttle Balance Red Comments Staggered Stance, Lateral Weight Shift Therapeutic Ball Bridging /c Hamstring curls Exercise Details Bridging /c HS curls Ball Size/Color Blue - 45 cm Body Position Supine Therapeutic Exercises Supine Exercises Piriformis Stretch Supine Exercise Name Figure-4 Side right Other Exercises Resisted Forward/Retro walking Other Exercise Name Resisted Forward/Retro walking Resistance Green Equipment Used T-band Resisted Side-stepping Other Exercise Name Resisted side-stepping Resistance Green Equipment Used T-band Manual Therapy Treatment Soft Tissue Mobilization Psoas Body Location R Psoas Mobilization Type Strumming Sustained Pressure Intensity/Depth Deep Body Position Supine Piriformis Body Location R Piriformis Mobilization Type Cross-Friction Sustained Pressure Intensity/Depth Deep Body Position Prone Comments along with active R hip ER/IR Joint Mobilizations R posterior tilt Joint R SI Direction posterior tilt Grade III Body Position Supine Reps/Duration 5 mins Manual Traction Lower Extremity Details Lateral Hip traction /c strap Body Position Supine PT-OP-T Assessment and Plan Start: 10/25/18 09:38 Freq: Status: Active Protocol: Document 12/01/18 13:45 DCW (Rec: 12/01/18 14:28 DCW [id number]) Physical Therapy Assessment Impairments Impairments Pain Soft Tissue Mobility Tone Goals Four Impairment Tenderness to palpation Alf Goal (LTG) Palpation of piriformis to 1/4 - Complaint of pain LTG Duration 12/25/18 Three Impairment LE weakness Alf Goal (LTG) LE MMT grossly 5/5 LTG Duration 12/25/18 Two Impairment Activity participation Short Term Goal (STG) Pt to report no increased pain with housework over a period of two weeks STG Duration 11/24/18 Shirt Trimmer Goal (LTG) Pt to report no increase pain when pushing her son on a bike over a period of one month LTG Duration 12/25/18 One Impairment Pt does not have an appropriate home exercise program Short Term Goal (STG) Pt to be independent and complaint with an appropriate HEP STG Duration 11/24/18 Assessment Summary Assessment Pt tone largely decreasing, however continues to exhibit increased right-sided piriformis tone. Physical Therapy Plan Frequency and Duration Frequency of Treatment 2x/Week Duration of Treatment 2 Months Plan of Care Start Date 10/24/18 Plan of Care End Date 12/25/18 Therapeutic Interventions Therapeutic Interventions Home Exercise Program Joint Mobilizations Manual Therapy Patient/Caregiver Education Self-Care/Home Management Soft Tissue Mobilization Therapeutic Activities Therapeutic Exercises Modalities Cold Pack/Ice Massage Electric Stimulation Hot Packs Ultrasound Next Visit Focus/Plan Next Note Type Treatment Note Next Visit Plan STM, Stretching, strengthening
--- NOTE | 2018-12-05 17:37 | PT.OTN ---
Current Diagnoses Pain in unspecified hip (12/05/18) Physical Therapy Treatment Note PT-OP-A Visit Information Start: 10/25/18 09:38 Freq: Status: Active Protocol: Document 12/05/18 13:45 DCW (Rec: 12/05/18 17:37 DCW [id number]) Out-Patient Physical Therapy Visit Information Visit Information Visit Type Treatment Note Visit Start Time 13:45 Visit Stop Time 14:30 Total Visit Minutes 45 Visit Number 8 Evaluation Information Evaluation Date 10/24/18 PT-OP-B Current Condition Start: 10/25/18 09:38 Freq: Status: Active Protocol: Document 10/24/18 13:45 DCW (Rec: 10/25/18 10:19 DCW [id number]) Current Condition History of Current Condition Onset Date 5 year history Current Complaints Posterior right hip pain with associated radicular right leg symptoms History of Current Condition Pt is a 28 year old female who reports she began having occasional right hip pain periodically following the of her first child five years ago. Pt admits that she is able to work through the pain and do what I need to, but when she has a flare-up, it is difficult to hold her one-year old son or to walk around too much. Pt notes that recently, she has noticed increased frequency of flare- ups, which can last up to a week, or she can go three weeks without any pain. Patient feels pain go from my back hip to my groin, and also notes radiating pain down to her knee and ankle. Pt notes that prior to giving last year, she was seen at this clinic for hip and back pain, and has continued to perform her HEP from then, which includes cat/camel, child's pose, and adductor ball squeeze. Treatment Goals Patient/Caregiver Goals Pt would like to decrease frequency of flare-ups, and to be able to walk and hold her son without worrying about increased pain. Prior Functional Status Baseline Function- ADL's Independent Baseline Function- Mobility Independent Current Functional Impairments (Reported) Functional Limitations- ADL's Housework will occasionally cause flare-ups, as well as pushing her son on a bike PT-OP-C Subjective Start: 10/25/18 09:38 Freq: Status: Active Protocol: Document 12/05/18 13:45 DCW (Rec: 12/05/18 17:37 DCW [id number]) OP-PT Subjective Patient Comments Patient Comments Pt reports a lot more pinching in her anterior hip, notes it began as increased pain this weekend when she was walking up a hill. PT-OP-F Manual Assessment Start: 10/25/18 09:38 Freq: Status: Active Protocol: Document 10/24/18 13:45 DCW (Rec: 10/25/18 10:19 DCW [id number]) Manual Assessments Soft Tissue Assessment Soft Tissue Mobility Assessment Mild tone and 1/4 - Complaint of pain with palpation of right Quadratus Lumborum Severe tone and 3/4 - Wincing and withdraw with palpation of right Piriformis Joint Mobility Assessment Joint Mobility Assessment No pain with palpation of SI or lumbar spine, no pain with hip PROM, loud popping bilaterally in hips with PROM PT-OP-L Special Tests Start: 10/25/18 09:38 Freq: Status: Active Protocol: Document 10/24/18 13:45 DCW (Rec: 10/25/18 10:19 DCW [id number]) Special Tests Lumbar Spine Special Tests Compression Test Results Negative Straight Leg Raise Test Results Pain in R Slump Test Results Pain in R Hip Special Tests Piriformis Test Results Recreates radicular pain with palpation Lateral SI compression Test Results Negative LILIA Test Results Negative Comments Joint popping bilaterally PT-OP-M Strength Start: 10/25/18 09:38 Freq: Status: Active Protocol: Document 10/24/18 13:45 DCW (Rec: 10/25/18 10:19 NEW [id number]) Hip Strength Hip Manual Muscle Testing Right Flexion (L2) 5 Normal Abduction 4 Good Adduction 5 Normal External Rotation 4 Good Internal Rotation 4 Good Left Flexion (L2) 5 Normal Abduction 4+ Good+ Adduction 5 Normal External Rotation 4+ Good+ Internal Rotation 4+ Good+ Knee Strength Knee Manual Muscle Testing Right Flexion (S2) 4 Good Extension (L3) 4+ Good+ Left Flexion (S2) 4 Good Extension (L3) 4+ Good+ Ankle/Foot Strength Ankle and Foot Manual Muscle Testing Right Dorsiflexion (L4) 4+ Good+ Plantarflexion (S1) 4+ Good+ Left Dorsiflexion (L4) 4+ Good+ Plantarflexion (S1) 4+ Good+ PT-OP-Q Treatments Start: 10/25/18 09:38 Freq: Status: Active Protocol: Document 12/05/18 13:45 DCW (Rec: 12/05/18 17:37 DCW [id number]) Therapeutic Exercises Supine Exercises Hip PROM Supine Exercise Name Hip PROM Side right Piriformis Stretch Supine Exercise Name Figure-4 Side right Sitting Exercises Short foot Sitting Exercise Name Intrinsic foot flexion Side left Intrinsic Spelter Pick-up Sitting Exercise Name Spelter pick-up Side left Manual Therapy Treatment Soft Tissue Mobilization Psoas Body Location R Psoas Mobilization Type Strumming Sustained Pressure Intensity/Depth Deep Body Position Supine Piriformis Body Location R Piriformis Mobilization Type Cross-Friction Sustained Pressure Intensity/Depth Deep Body Position Prone Comments along with active R hip ER/IR Joint Mobilizations R posterior tilt Joint R SI Direction posterior tilt Grade III Body Position Supine Reps/Duration 5 mins Manual Traction Lower Extremity Details Lateral Hip traction /c strap Body Position Supine Manual Techniques Resisted hip hiking Type Resisted hip hiking Body Position Sidelying PT-OP-T Assessment and Plan Start: 10/25/18 09:38 Freq: Status: Active Protocol: Document 12/05/18 13:45 DCW (Rec: 12/05/18 17:37 DC [id number]) Physical Therapy Assessment Impairments Impairments Pain Soft Tissue Mobility Tone Goals Four Impairment Tenderness to palpation Mcc Goal (LTG) Palpation of piriformis to 1/4 - Complaint of pain LTG Duration 12/25/18 Three Impairment LE weakness Mcc Goal (LTG) LE MMT grossly 5/5 LTG Duration 12/25/18 Two Impairment Activity participation Short Term Goal (STG) Pt to report no increased pain with housework over a period of two weeks STG Duration 11/24/18 Telephone Instrument Supervisor Goal (LTG) Pt to report no increase pain when pushing her son on a bike over a period of one month LTG Duration 12/25/18 One Impairment Pt does not have an appropriate home exercise program Short Term Goal (STG) Pt to be independent and complaint with an appropriate HEP STG Duration 11/24/18 Assessment Summary Assessment Pt has mild pronation of left foot in standing which appears to significantly influence the position of her right hip. Addition of intrinsic foot strengthening exercises in an effort to decrease excessive pronation. Physical Therapy Plan Frequency and Duration Frequency of Treatment 2x/Week Duration of Treatment 2 Months Plan of Care Start Date 10/24/18 Plan of Care End Date 12/25/18 Therapeutic Interventions Therapeutic Interventions Home Exercise Program Joint Mobilizations Manual Therapy Patient/Caregiver Education Self-Care/Home Management Soft Tissue Mobilization Therapeutic Activities Therapeutic Exercises Modalities Cold Pack/Ice Massage Electric Stimulation Hot Packs Ultrasound Next Visit Focus/Plan Next Note Type Treatment Note Next Visit Plan STM, Stretching, strengthening
--- NOTE | 2018-12-08 14:25 | PT.OTN ---
Current Diagnoses Pain in unspecified hip (12/08/18) Physical Therapy Treatment Note PT-OP-A Visit Information Start: 10/25/18 09:38 Freq: Status: Active Protocol: Document 12/08/18 13:45 DCW (Rec: 12/08/18 14:25 DCW [id number]) Out-Patient Physical Therapy Visit Information Visit Information Visit Type Treatment Note Visit Start Time 13:45 Visit Stop Time 14:30 Total Visit Minutes 45 Visit Number 8 Evaluation Information Evaluation Date 10/24/18 PT-OP-B Current Condition Start: 10/25/18 09:38 Freq: Status: Active Protocol: Document 10/24/18 13:45 DCW (Rec: 10/25/18 10:19 DCW [id number]) Current Condition History of Current Condition Onset Date 5 year history Current Complaints Posterior right hip pain with associated radicular right leg symptoms History of Current Condition Pt is a 28 year old female who reports she began having occasional right hip pain periodically following the of her first child five years ago. Pt admits that she is able to work through the pain and do what I need to, but when she has a flare-up, it is difficult to hold her one-year old son or to walk around too much. Pt notes that recently, she has noticed increased frequency of flare- ups, which can last up to a week, or she can go three weeks without any pain. Patient feels pain go from my back hip to my groin, and also notes radiating pain down to her knee and ankle. Pt notes that prior to giving last year, she was seen at this clinic for hip and back pain, and has continued to perform her HEP from then, which includes cat/camel, child's pose, and adductor ball squeeze. Treatment Goals Patient/Caregiver Goals Pt would like to decrease frequency of flare-ups, and to be able to walk and hold her son without worrying about increased pain. Prior Functional Status Baseline Function- ADL's Independent Baseline Function- Mobility Independent Current Functional Impairments (Reported) Functional Limitations- ADL's Housework will occasionally cause flare-ups, as well as pushing her son on a bike PT-OP-C Subjective Start: 10/25/18 09:38 Freq: Status: Active Protocol: Document 12/08/18 13:45 DCW (Rec: 12/08/18 14:25 DCW [id number]) OP-PT Subjective Patient Comments Patient Comments Pt notes she was still pretty sore following her last visit, but the pain has since faded, and she is no longer experiencing the new pain in her anterior hip. PT-OP-F Manual Assessment Start: 10/25/18 09:38 Freq: Status: Active Protocol: Document 10/24/18 13:45 DCW (Rec: 10/25/18 10:19 DCW [id number]) Manual Assessments Soft Tissue Assessment Soft Tissue Mobility Assessment Mild tone and 1/4 - Complaint of pain with palpation of right Quadratus Lumborum Severe tone and 3/4 - Wincing and withdraw with palpation of right Piriformis Joint Mobility Assessment Joint Mobility Assessment No pain with palpation of SI or lumbar spine, no pain with hip PROM, loud popping bilaterally in hips with PROM PT-OP-L Special Tests Start: 10/25/18 09:38 Freq: Status: Active Protocol: Document 10/24/18 13:45 DCW (Rec: 10/25/18 10:19 DCW [id number]) Special Tests Lumbar Spine Special Tests Compression Test Results Negative Straight Leg Raise Test Results Pain in R Slump Test Results Pain in R Hip Special Tests Piriformis Test Results Recreates radicular pain with palpation Lateral SI compression Test Results Negative LILIA Test Results Negative Comments Joint popping bilaterally PT-OP-M Strength Start: 10/25/18 09:38 Freq: Status: Active Protocol: Document 10/24/18 13:45 DCW (Rec: 10/25/18 10:19 DCW [id number]) Hip Strength Hip Manual Muscle Testing Right Flexion (L2) 5 Normal Abduction 4 Good Adduction 5 Normal External Rotation 4 Good Internal Rotation 4 Good Left Flexion (L2) 5 Normal Abduction 4+ Good+ Adduction 5 Normal External Rotation 4+ Good+ Internal Rotation 4+ Good+ Knee Strength Knee Manual Muscle Testing Right Flexion (S2) 4 Good Extension (L3) 4+ Good+ Left Flexion (S2) 4 Good Extension (L3) 4+ Good+ Ankle/Foot Strength Ankle and Foot Manual Muscle Testing Right Dorsiflexion (L4) 4+ Good+ Plantarflexion (S1) 4+ Good+ Left Dorsiflexion (L4) 4+ Good+ Plantarflexion (S1) 4+ Good+ PT-OP-Q Treatments Start: 10/25/18 09:38 Freq: Status: Active Protocol: Document 12/08/18 13:45 DCW (Rec: 12/08/18 14:25 DCW [id number]) Gym Equipment Shuttle Balance Red Comments Staggered Stance, Lateral Weight Shift Therapeutic Ball Bridging /c Hamstring curls Exercise Details Bridging /c HS curls Ball Size/Color Blue - 45 cm Body Position Supine Therapeutic Exercises Prone Exercises Plank Prone Exercise Name Plank Reps/Minutes to fatigue Comments on elbows Sidelying Exercises Side-plank Sidelying Exercise Name Side-plank Side bilateral Reps/Minutes to fatigue Comments on elbows Other Exercises Resisted Forward/Retro walking Other Exercise Name Resisted Forward/Retro walking Resistance Green Equipment Used T-band Resisted Side-stepping Other Exercise Name Resisted side-stepping Resistance Green Equipment Used T-band PT-OP-T Assessment and Plan Start: 10/25/18 09:38 Freq: Status: Active Protocol: Document 12/08/18 13:45 DCW (Rec: 12/08/18 14:25 DCW [id number]) Physical Therapy Assessment Impairments Impairments Pain Soft Tissue Mobility Tone Goals Four Impairment Tenderness to palpation Jail Goal (LTG) Palpation of piriformis to 1/4 - Complaint of pain LTG Duration 12/25/18 Three Impairment LE weakness Food And Nutrition Services Supervisor Goal (LTG) LE MMT grossly 5/5 LTG Duration 12/25/18 Two Impairment Activity participation Short Term Goal (STG) Pt to report no increased pain with housework over a period of two weeks STG Duration 11/24/18 Jail Goal (LTG) Pt to report no increase pain when pushing her son on a bike over a period of one month LTG Duration 12/25/18 One Impairment Pt does not have an appropriate home exercise program Short Term Goal (STG) Pt to be independent and complaint with an appropriate HEP STG Duration 11/24/18 Assessment Summary Assessment Pt improving with TherEx, however did display continued core weakness with attempted planks today. Instructed her to continue planks at home. Physical Therapy Plan Frequency and Duration Frequency of Treatment 2x/Week Duration of Treatment 2 Months Plan of Care Start Date 10/24/18 Plan of Care End Date 12/25/18 Therapeutic Interventions Therapeutic Interventions Home Exercise Program Joint Mobilizations Manual Therapy Patient/Caregiver Education Self-Care/Home Management Soft Tissue Mobilization Therapeutic Activities Therapeutic Exercises Modalities Cold Pack/Ice Massage Electric Stimulation Hot Packs Ultrasound Next Visit Focus/Plan Next Note Type Treatment Note Next Visit Plan STM, Stretching, strengthening
--- NOTE | 2018-12-12 14:30 | PT.OTN ---
Current Diagnoses Pain in unspecified hip (12/12/18) Physical Therapy Treatment Note PT-OP-A Visit Information Start: 10/25/18 09:38 Freq: Status: Active Protocol: Document 12/12/18 13:45 DCW (Rec: 12/12/18 14:30 DCW [id number]) Out-Patient Physical Therapy Visit Information Visit Information Visit Type Treatment Note Visit Start Time 13:45 Visit Stop Time 14:30 Total Visit Minutes 45 Visit Number 10 Evaluation Information Evaluation Date 10/24/18 PT-OP-B Current Condition Start: 10/25/18 09:38 Freq: Status: Active Protocol: Document 10/24/18 13:45 DCW (Rec: 10/25/18 10:19 DCW [id number]) Current Condition History of Current Condition Onset Date 5 year history Current Complaints Posterior right hip pain with associated radicular right leg symptoms History of Current Condition Pt is a 28 year old female who reports she began having occasional right hip pain periodically following the of her first child five years ago. Pt admits that she is able to work through the pain and do what I need to, but when she has a flare-up, it is difficult to hold her one-year old son or to walk around too much. Pt notes that recently, she has noticed increased frequency of flare- ups, which can last up to a week, or she can go three weeks without any pain. Patient feels pain go from my back hip to my groin, and also notes radiating pain down to her knee and ankle. Pt notes that prior to giving last year, she was seen at this clinic for hip and back pain, and has continued to perform her HEP from then, which includes cat/camel, child's pose, and adductor ball squeeze. Treatment Goals Patient/Caregiver Goals Pt would like to decrease frequency of flare-ups, and to be able to walk and hold her son without worrying about increased pain. Prior Functional Status Baseline Function- ADL's Independent Baseline Function- Mobility Independent Current Functional Impairments (Reported) Functional Limitations- ADL's Housework will occasionally cause flare-ups, as well as pushing her son on a bike PT-OP-C Subjective Start: 10/25/18 09:38 Freq: Status: Active Protocol: Document 12/12/18 13:45 DCW (Rec: 12/12/18 14:30 DCW [id number]) OP-PT Subjective Patient Comments Patient Comments My hip feels tight, but it doesn't hurt as much, and I haven't had any flare-ups. PT-OP-F Manual Assessment Start: 10/25/18 09:38 Freq: Status: Active Protocol: Document 10/24/18 13:45 DCW (Rec: 10/25/18 10:19 DCW [id number]) Manual Assessments Soft Tissue Assessment Soft Tissue Mobility Assessment Mild tone and 1/4 - Complaint of pain with palpation of right Quadratus Lumborum Severe tone and 3/4 - Wincing and withdraw with palpation of right Piriformis Joint Mobility Assessment Joint Mobility Assessment No pain with palpation of SI or lumbar spine, no pain with hip PROM, loud popping bilaterally in hips with PROM PT-OP-L Special Tests Start: 10/25/18 09:38 Freq: Status: Active Protocol: Document 10/24/18 13:45 DCW (Rec: 10/25/18 10:19 DCW [id number]) Special Tests Lumbar Spine Special Tests Compression Test Results Negative Straight Leg Raise Test Results Pain in R Slump Test Results Pain in R Hip Special Tests Piriformis Test Results Recreates radicular pain with palpation Lateral SI compression Test Results Negative LILIA Test Results Negative Comments Joint popping bilaterally PT-OP-M Strength Start: 10/25/18 09:38 Freq: Status: Active Protocol: Document 10/24/18 13:45 DCW (Rec: 10/25/18 10:19 DCW [id number]) Hip Strength Hip Manual Muscle Testing Right Flexion (L2) 5 Normal Abduction 4 Good Adduction 5 Normal External Rotation 4 Good Internal Rotation 4 Good Left Flexion (L2) 5 Normal Abduction 4+ Good+ Adduction 5 Normal External Rotation 4+ Good+ Internal Rotation 4+ Good+ Knee Strength Knee Manual Muscle Testing Right Flexion (S2) 4 Good Extension (L3) 4+ Good+ Left Flexion (S2) 4 Good Extension (L3) 4+ Good+ Ankle/Foot Strength Ankle and Foot Manual Muscle Testing Right Dorsiflexion (L4) 4+ Good+ Plantarflexion (S1) 4+ Good+ Left Dorsiflexion (L4) 4+ Good+ Plantarflexion (S1) 4+ Good+ PT-OP-Q Treatments Start: 10/25/18 09:38 Freq: Status: Active Protocol: Document 12/12/18 13:45 DCW (Rec: 12/12/18 14:30 DCW [id number]) Gym Equipment Shuttle Balance Red Comments Wide FIDELIA (EO/EC), Staggered Stance (vs perturbations) Therapeutic Exercises Supine Exercises Hip PROM Supine Exercise Name Hip PROM Side right Piriformis Stretch Supine Exercise Name Figure-4 Side right Other Exercises Resisted Forward/Retro walking Other Exercise Name Resisted Forward/Retro walking Resistance Green Equipment Used T-band Resisted Side-stepping Other Exercise Name Resisted side-stepping Resistance Green Equipment Used T-band Manual Therapy Treatment Soft Tissue Mobilization Psoas Body Location R Psoas Mobilization Type Strumming Sustained Pressure Intensity/Depth Deep Body Position Supine Piriformis Body Location R Piriformis Mobilization Type Cross-Friction Sustained Pressure Intensity/Depth Deep Body Position Prone Comments along with active R hip ER/IR Joint Mobilizations R posterior tilt Joint R SI Direction posterior tilt Grade III Body Position Supine Reps/Duration 5 mins Manual Traction Lower Extremity Details Lateral Hip traction /c strap Body Position Supine Manual Techniques Resisted hip hiking Type Resisted hip hiking Body Position Sidelying PT-OP-T Assessment and Plan Start: 10/25/18 09:38 Freq: Status: Active Protocol: Document 12/12/18 13:45 DCW (Rec: 12/12/18 14:30 DCW [id number]) Physical Therapy Assessment Impairments Impairments Pain Soft Tissue Mobility Tone Goals Four Impairment Tenderness to palpation Half-Way Goal (LTG) Palpation of piriformis to 1/4 - Complaint of pain LTG Duration 12/25/18 Three Impairment LE weakness Triage Assistant Goal (LTG) LE MMT grossly 5/5 LTG Duration 12/25/18 Two Impairment Activity participation Short Term Goal (STG) Pt to report no increased pain with housework over a period of two weeks STG Duration 11/24/18 Triage Assistant Goal (LTG) Pt to report no increase pain when pushing her son on a bike over a period of one month LTG Duration 12/25/18 One Impairment Pt does not have an appropriate home exercise program Short Term Goal (STG) Pt to be independent and complaint with an appropriate HEP STG Duration 11/24/18 Assessment Summary Assessment Pt has been fairly non- compliant with HEP, will work to improve her ability to follow plan outside of therapy . Physical Therapy Plan Frequency and Duration Frequency of Treatment 2x/Week Duration of Treatment 2 Months Plan of Care Start Date 10/24/18 Plan of Care End Date 12/25/18 Therapeutic Interventions Therapeutic Interventions Home Exercise Program Joint Mobilizations Manual Therapy Patient/Caregiver Education Self-Care/Home Management Soft Tissue Mobilization Therapeutic Activities Therapeutic Exercises Modalities Cold Pack/Ice Massage Electric Stimulation Hot Packs Ultrasound Next Visit Focus/Plan Next Note Type Treatment Note Next Visit Plan STM, Stretching, strengthening
--- NOTE | 2018-12-15 14:31 | PT.OTN ---
Current Diagnoses Pain in unspecified hip (12/15/18) Physical Therapy Treatment Note PT-OP-A Visit Information Start: 10/25/18 09:38 Freq: Status: Active Protocol: Document 12/15/18 13:45 DCW (Rec: 12/15/18 14:31 DCW [id number]) Out-Patient Physical Therapy Visit Information Visit Information Visit Type Treatment Note Visit Start Time 13:45 Visit Stop Time 14:30 Total Visit Minutes 45 Visit Number 11 Evaluation Information Evaluation Date 10/24/18 PT-OP-B Current Condition Start: 10/25/18 09:38 Freq: Status: Active Protocol: Document 10/24/18 13:45 DCW (Rec: 10/25/18 10:19 DCW [id number]) Current Condition History of Current Condition Onset Date 5 year history Current Complaints Posterior right hip pain with associated radicular right leg symptoms History of Current Condition Pt is a 28 year old female who reports she began having occasional right hip pain periodically following the of her first child five years ago. Pt admits that she is able to work through the pain and do what I need to, but when she has a flare-up, it is difficult to hold her one-year old son or to walk around too much. Pt notes that recently, she has noticed increased frequency of flare- ups, which can last up to a week, or she can go three weeks without any pain. Patient feels pain go from my back hip to my groin, and also notes radiating pain down to her knee and ankle. Pt notes that prior to giving last year, she was seen at this clinic for hip and back pain, and has continued to perform her HEP from then, which includes cat/camel, child's pose, and adductor ball squeeze. Treatment Goals Patient/Caregiver Goals Pt would like to decrease frequency of flare-ups, and to be able to walk and hold her son without worrying about increased pain. Prior Functional Status Baseline Function- ADL's Independent Baseline Function- Mobility Independent Current Functional Impairments (Reported) Functional Limitations- ADL's Housework will occasionally cause flare-ups, as well as pushing her son on a bike PT-OP-C Subjective Start: 10/25/18 09:38 Freq: Status: Active Protocol: Document 12/15/18 13:45 DCW (Rec: 12/15/18 14:31 DCW [id number]) OP-PT Subjective Patient Comments Patient Comments I'm feeling pretty good, but I woke up with a really sore back today. PT-OP-F Manual Assessment Start: 10/25/18 09:38 Freq: Status: Active Protocol: Document 10/24/18 13:45 DCW (Rec: 10/25/18 10:19 DCW [id number]) Manual Assessments Soft Tissue Assessment Soft Tissue Mobility Assessment Mild tone and 1/4 - Complaint of pain with palpation of right Quadratus Lumborum Severe tone and 3/4 - Wincing and withdraw with palpation of right Piriformis Joint Mobility Assessment Joint Mobility Assessment No pain with palpation of SI or lumbar spine, no pain with hip PROM, loud popping bilaterally in hips with PROM PT-OP-L Special Tests Start: 10/25/18 09:38 Freq: Status: Active Protocol: Document 10/24/18 13:45 DCW (Rec: 10/25/18 10:19 DCW [id number]) Special Tests Lumbar Spine Special Tests Compression Test Results Negative Straight Leg Raise Test Results Pain in R Slump Test Results Pain in R Hip Special Tests Piriformis Test Results Recreates radicular pain with palpation Lateral SI compression Test Results Negative LILIA Test Results Negative Comments Joint popping bilaterally PT-OP-M Strength Start: 10/25/18 09:38 Freq: Status: Active Protocol: Document 10/24/18 13:45 DCW (Rec: 10/25/18 10:19 DCW [id number]) Hip Strength Hip Manual Muscle Testing Right Flexion (L2) 5 Normal Abduction 4 Good Adduction 5 Normal External Rotation 4 Good Internal Rotation 4 Good Left Flexion (L2) 5 Normal Abduction 4+ Good+ Adduction 5 Normal External Rotation 4+ Good+ Internal Rotation 4+ Good+ Knee Strength Knee Manual Muscle Testing Right Flexion (S2) 4 Good Extension (L3) 4+ Good+ Left Flexion (S2) 4 Good Extension (L3) 4+ Good+ Ankle/Foot Strength Ankle and Foot Manual Muscle Testing Right Dorsiflexion (L4) 4+ Good+ Plantarflexion (S1) 4+ Good+ Left Dorsiflexion (L4) 4+ Good+ Plantarflexion (S1) 4+ Good+ PT-OP-Q Treatments Start: 10/25/18 09:38 Freq: Status: Active Protocol: Document 12/15/18 13:45 DCW (Rec: 12/15/18 14:31 DCW [id number]) Gym Equipment Shuttle Balance Red Comments Wide FIDELIA (EO/EC), Staggered Stance (vs perturbations) Manual Therapy Treatment Soft Tissue Mobilization T/L Paraspinals Body Location Bilateral T/L Paraspinals Mobilization Type Strumming Sustained Pressure Intensity/Depth Moderate Body Position Prone Psoas Body Location R Psoas Mobilization Type Strumming Sustained Pressure Intensity/Depth Deep Body Position Supine Piriformis Body Location R Piriformis Mobilization Type Cross-Friction Sustained Pressure Intensity/Depth Deep Body Position Prone Comments along with active R hip ER/IR Joint Mobilizations Scapula Mobilizations Joint Scapular mobs Direction Lateral Body Position Side-lying T5 Joint T5 Direction P->A Grade IV PT-OP-T Assessment and Plan Start: 10/25/18 09:38 Freq: Status: Active Protocol: Document 12/15/18 13:45 DCW (Rec: 12/15/18 14:31 DCW [id number]) Physical Therapy Assessment Impairments Impairments Pain Soft Tissue Mobility Tone Goals Four Impairment Tenderness to palpation Retirement Goal (LTG) Palpation of piriformis to 1/4 - Complaint of pain LTG Duration 12/25/18 Three Impairment LE weakness Metal Tester Goal (LTG) LE MMT grossly 5/5 LTG Duration 12/25/18 Two Impairment Activity participation Short Term Goal (STG) Pt to report no increased pain with housework over a period of two weeks STG Duration 11/24/18 Metal Tester Goal (LTG) Pt to report no increase pain when pushing her son on a bike over a period of one month LTG Duration 12/25/18 One Impairment Pt does not have an appropriate home exercise program Short Term Goal (STG) Pt to be independent and complaint with an appropriate HEP STG Duration 11/24/18 Assessment Summary Assessment During her manual therapy along her psoas today, pt mentioned she has a lot of pain slightly medial to that area with intercourse. Pt will likely benefit from a Women's Health assessment. Physical Therapy Plan Frequency and Duration Frequency of Treatment 2x/Week Duration of Treatment 2 Months Plan of Care Start Date 10/24/18 Plan of Care End Date 12/25/18 Therapeutic Interventions Therapeutic Interventions Home Exercise Program Joint Mobilizations Manual Therapy Patient/Caregiver Education Self-Care/Home Management Soft Tissue Mobilization Therapeutic Activities Therapeutic Exercises Modalities Cold Pack/Ice Massage Electric Stimulation Hot Packs Ultrasound Other Referrals/Consults Referrals/Consults Recommended Possible referral to Women's Health? Next Visit Focus/Plan Next Note Type Treatment Note Next Visit Plan STM, Stretching, strengthening
--- NOTE | 2018-12-19 14:31 | PT.OTN ---
Current Diagnoses Pain in unspecified hip (12/19/18) Physical Therapy Treatment Note PT-OP-A Visit Information Start: 10/25/18 09:38 Freq: Status: Active Protocol: Document 12/19/18 13:47 DCW (Rec: 12/19/18 14:31 DCW [id number]) Out-Patient Physical Therapy Visit Information Visit Information Visit Type Treatment Note Visit Start Time 13:45 Visit Stop Time 14:30 Total Visit Minutes 45 Visit Number 12 Evaluation Information Evaluation Date 10/24/18 PT-OP-B Current Condition Start: 10/25/18 09:38 Freq: Status: Active Protocol: Document 10/24/18 13:45 DCW (Rec: 10/25/18 10:19 DCW [id number]) Current Condition History of Current Condition Onset Date 5 year history Current Complaints Posterior right hip pain with associated radicular right leg symptoms History of Current Condition Pt is a 28 year old female who reports she began having occasional right hip pain periodically following the of her first child five years ago. Pt admits that she is able to work through the pain and do what I need to, but when she has a flare-up, it is difficult to hold her one-year old son or to walk around too much. Pt notes that recently, she has noticed increased frequency of flare- ups, which can last up to a week, or she can go three weeks without any pain. Patient feels pain go from my back hip to my groin, and also notes radiating pain down to her knee and ankle. Pt notes that prior to giving last year, she was seen at this clinic for hip and back pain, and has continued to perform her HEP from then, which includes cat/camel, child's pose, and adductor ball squeeze. Treatment Goals Patient/Caregiver Goals Pt would like to decrease frequency of flare-ups, and to be able to walk and hold her son without worrying about increased pain. Prior Functional Status Baseline Function- ADL's Independent Baseline Function- Mobility Independent Current Functional Impairments (Reported) Functional Limitations- ADL's Housework will occasionally cause flare-ups, as well as pushing her son on a bike PT-OP-C Subjective Start: 10/25/18 09:38 Freq: Status: Active Protocol: Document 12/19/18 13:47 DCW (Rec: 12/19/18 14:31 DCW [id number]) OP-PT Subjective Patient Comments Patient Comments Pt reports her back was sore enough last night to wake her up, but is feeling okay right now. PT-OP-F Manual Assessment Start: 10/25/18 09:38 Freq: Status: Active Protocol: Document 10/24/18 13:45 DCW (Rec: 10/25/18 10:19 DCW [id number]) Manual Assessments Soft Tissue Assessment Soft Tissue Mobility Assessment Mild tone and 1/4 - Complaint of pain with palpation of right Quadratus Lumborum Severe tone and 3/4 - Wincing and withdraw with palpation of right Piriformis Joint Mobility Assessment Joint Mobility Assessment No pain with palpation of SI or lumbar spine, no pain with hip PROM, loud popping bilaterally in hips with PROM PT-OP-L Special Tests Start: 10/25/18 09:38 Freq: Status: Active Protocol: Document 10/24/18 13:45 DCW (Rec: 10/25/18 10:19 DCW [id number]) Special Tests Lumbar Spine Special Tests Compression Test Results Negative Straight Leg Raise Test Results Pain in R Slump Test Results Pain in R Hip Special Tests Piriformis Test Results Recreates radicular pain with palpation Lateral SI compression Test Results Negative LILIA Test Results Negative Comments Joint popping bilaterally PT-OP-M Strength Start: 10/25/18 09:38 Freq: Status: Active Protocol: Document 10/24/18 13:45 DCW (Rec: 10/25/18 10:19 DCW [id number]) Hip Strength Hip Manual Muscle Testing Right Flexion (L2) 5 Normal Abduction 4 Good Adduction 5 Normal External Rotation 4 Good Internal Rotation 4 Good Left Flexion (L2) 5 Normal Abduction 4+ Good+ Adduction 5 Normal External Rotation 4+ Good+ Internal Rotation 4+ Good+ Knee Strength Knee Manual Muscle Testing Right Flexion (S2) 4 Good Extension (L3) 4+ Good+ Left Flexion (S2) 4 Good Extension (L3) 4+ Good+ Ankle/Foot Strength Ankle and Foot Manual Muscle Testing Right Dorsiflexion (L4) 4+ Good+ Plantarflexion (S1) 4+ Good+ Left Dorsiflexion (L4) 4+ Good+ Plantarflexion (S1) 4+ Good+ PT-OP-Q Treatments Start: 10/25/18 09:38 Freq: Status: Active Protocol: Document 12/19/18 13:47 DCW (Rec: 12/19/18 14:31 DCW [id number]) Gym Equipment Shuttle Recovery Plyometric Hopping Details Single leg Resistance 50# Shuttle Recovery Platform Stable Reps/Time x20 each Shuttle Balance Red Comments Wide FIDELIA (EO/EC), Staggered Stance (vs perturbations) Therapeutic Exercises Supine Exercises Piriformis Stretch Supine Exercise Name Figure-4 Side right Other Exercises Resisted Forward/Retro walking Other Exercise Name Resisted Forward/Retro walking Resistance Green Equipment Used T-band Resisted Side-stepping Other Exercise Name Resisted side-stepping Resistance Green Equipment Used T-band Comments /c mini-squat Manual Therapy Treatment Soft Tissue Mobilization T/L Paraspinals Body Location Bilateral T/L Paraspinals Mobilization Type Strumming Sustained Pressure Intensity/Depth Moderate Body Position Prone Psoas Body Location R Psoas Mobilization Type Strumming Sustained Pressure Intensity/Depth Deep Body Position Supine Piriformis Body Location R Piriformis Mobilization Type Cross-Friction Sustained Pressure Intensity/Depth Deep Body Position Prone Comments along with active R hip ER/IR Joint Mobilizations Hip mobs Joint Femoralacetabular Direction inferior Grade III Body Position Supine T5 Joint T5 Direction P->A Grade IV Manual Techniques Resisted hip hiking Type Resisted hip hiking Body Position Prone PT-OP-T Assessment and Plan Start: 10/25/18 09:38 Freq: Status: Active Protocol: Document 12/19/18 13:47 DCW (Rec: 12/19/18 14:31 DCW [id number]) Physical Therapy Assessment Impairments Impairments Pain Soft Tissue Mobility Tone Goals Four Impairment Tenderness to palpation Oceanographic Meteorologist Goal (LTG) Palpation of piriformis to 1/4 - Complaint of pain LTG Duration 12/25/18 Three Impairment LE weakness Correction Goal (LTG) LE MMT grossly 5/5 LTG Duration 12/25/18 Two Impairment Activity participation Short Term Goal (STG) Pt to report no increased pain with housework over a period of two weeks STG Duration 11/24/18 Correction Goal (LTG) Pt to report no increase pain when pushing her son on a bike over a period of one month LTG Duration 12/25/18 One Impairment Pt does not have an appropriate home exercise program Short Term Goal (STG) Pt to be independent and complaint with an appropriate HEP STG Duration 11/24/18 Assessment Summary Assessment Recommended to pt to schedule with Women's health therapist for exam due to her recent complaints. Physical Therapy Plan Frequency and Duration Frequency of Treatment 2x/Week Duration of Treatment 2 Months Plan of Care Start Date 10/24/18 Plan of Care End Date 12/25/18 Therapeutic Interventions Therapeutic Interventions Home Exercise Program Joint Mobilizations Manual Therapy Patient/Caregiver Education Self-Care/Home Management Soft Tissue Mobilization Therapeutic Activities Therapeutic Exercises Modalities Cold Pack/Ice Massage Electric Stimulation Hot Packs Ultrasound Other Referrals/Consults Referrals/Consults Recommended Referral to Women's Health Next Visit Focus/Plan Next Note Type Treatment Note Next Visit Plan STM, Stretching, strengthening
--- NOTE | 2018-12-27 14:14 | PT.OPPN ---
Current Diagnoses Pain in unspecified hip (12/27/18) Physical Therapy Progress Note PT-OP-A Visit Information Start: 10/25/18 09:38 Freq: Status: Active Protocol: Document 12/27/18 12:48 LRN (Rec: 12/27/18 14:13 LRN [id number]) Out-Patient Physical Therapy Visit Information Visit Information Visit Type Progress Note Visit Start Time 12:48 Visit Stop Time 12:40 Total Visit Minutes 52 Visit Number 13 Evaluation Information Evaluation Date 10/24/18 PT-OP-B Current Condition Start: 10/25/18 09:38 Freq: Status: Active Protocol: Document 10/24/18 13:45 DCW (Rec: 10/25/18 10:19 DCW [id number]) Current Condition History of Current Condition Onset Date 5 year history Current Complaints Posterior right hip pain with associated radicular right leg symptoms History of Current Condition Pt is a 28 year old female who reports she began having occasional right hip pain periodically following the of her first child five years ago. Pt admits that she is able to work through the pain and do what I need to, but when she has a flare-up, it is difficult to hold her one-year old son or to walk around too much. Pt notes that recently, she has noticed increased frequency of flare- ups, which can last up to a week, or she can go three weeks without any pain. Patient feels pain go from my back hip to my groin, and also notes radiating pain down to her knee and ankle. Pt notes that prior to giving last year, she was seen at this clinic for hip and back pain, and has continued to perform her HEP from then, which includes cat/camel, child's pose, and adductor ball squeeze. Treatment Goals Patient/Caregiver Goals Pt would like to decrease frequency of flare-ups, and to be able to walk and hold her son without worrying about increased pain. Prior Functional Status Baseline Function- ADL's Independent Baseline Function- Mobility Independent Current Functional Impairments (Reported) Functional Limitations- ADL's Housework will occasionally cause flare-ups, as well as pushing her son on a bike PT-OP-C Subjective Start: 10/25/18 09:38 Freq: Status: Active Protocol: Document 12/27/18 12:48 LRN (Rec: 12/27/18 14:13 LRN [id number]) OP-PT Subjective Patient Comments Patient Comments No change. States she has been nauseated but a test was negative. States R hip is sore from the groin, wrapping around to the posterior hip and up the back with intercourse. PT-OP-F Manual Assessment Start: 10/25/18 09:38 Freq: Status: Active Protocol: Document 10/24/18 13:45 DCW (Rec: 10/25/18 10:19 DCW [id number]) Manual Assessments Soft Tissue Assessment Soft Tissue Mobility Assessment Mild tone and 1/4 - Complaint of pain with palpation of right Quadratus Lumborum Severe tone and 3/4 - Wincing and withdraw with palpation of right Piriformis Joint Mobility Assessment Joint Mobility Assessment No pain with palpation of SI or lumbar spine, no pain with hip PROM, loud popping bilaterally in hips with PROM PT-OP-L Special Tests Start: 10/25/18 09:38 Freq: Status: Active Protocol: Document 10/24/18 13:45 DCW (Rec: 10/25/18 10:19 DCW [id number]) Special Tests Lumbar Spine Special Tests Compression Test Results Negative Straight Leg Raise Test Results Pain in R Slump Test Results Pain in R Hip Special Tests Piriformis Test Results Recreates radicular pain with palpation Lateral SI compression Test Results Negative LILIA Test Results Negative Comments Joint popping bilaterally PT-OP-M Strength Start: 10/25/18 09:38 Freq: Status: Active Protocol: Document 10/24/18 13:45 DCW (Rec: 10/25/18 10:19 DCW [id number]) Hip Strength Hip Manual Muscle Testing Right Flexion (L2) 5 Normal Abduction 4 Good Adduction 5 Normal External Rotation 4 Good Internal Rotation 4 Good Left Flexion (L2) 5 Normal Abduction 4+ Good+ Adduction 5 Normal External Rotation 4+ Good+ Internal Rotation 4+ Good+ Knee Strength Knee Manual Muscle Testing Right Flexion (S2) 4 Good Extension (L3) 4+ Good+ Left Flexion (S2) 4 Good Extension (L3) 4+ Good+ Ankle/Foot Strength Ankle and Foot Manual Muscle Testing Right Dorsiflexion (L4) 4+ Good+ Plantarflexion (S1) 4+ Good+ Left Dorsiflexion (L4) 4+ Good+ Plantarflexion (S1) 4+ Good+ PT-OP-T Assessment and Plan Start: 10/25/18 09:38 Freq: Status: Active Protocol: Document 12/27/18 12:48 LRN (Rec: 12/27/18 14:13 LRN [id number]) Physical Therapy Assessment Impairments Impairments Pain Soft Tissue Mobility Tone Goals R anterior hip pain Impairment R anterior hip pain limiting nighttime activities Network Control Operators Supervisor Goal (LTG) Pt will have tolerable pain with intercourse and be able to manage her pain on a home exercise program. LTG Duration 02/22/19 Four Impairment Tenderness to palpation Network Control Operators Supervisor Goal (LTG) Palpation of piriformis to 1 - Complaint of pain LTG Duration 01/22/19 Three Impairment LE weakness Group Home Goal (LTG) LE MMT grossly 5/5 LTG Duration 01/22/19 Two Impairment Activity participation Short Term Goal (STG) Pt to report no increased pain with housework over a period of two weeks STG Duration 01/22/19 Group Home Goal (LTG) Pt to report no increase pain when pushing her son on a bike over a period of one month. LTG Duration 02/22/19 One Impairment Pt does not have an appropriate home exercise program Short Term Goal (STG) Pt to be independent and complaint with an appropriate HEP STG Duration 02/22/19 Progress Towards Goals Progress Comments Goal #1: Progressing pt on her HEP as appropriate. Goal #2: Overall there are periods of less pain onset. Goal #4: Pain with R Piriformis. Assessment Summary Assessment Pt presents with mild tightness of the PF, decreased fascial mobility of the abdomen on the R anterior groin and L lateral pelvis and abdomen from umbilicus to groin. Her coccyx appears in an extended position causing pain with sitting and her hip mobility is notably restricted on the right with IR. I could not reproduce her symptoms with palpation of the hip or PF. The pt has reported ongoing nausea with a recent 10# weight loss; therefore the pt should return to her primary care physician for a recheck. The pt may benefit from PF stretching once she is cleared from her current illness of ongoing nausea. Physical Therapy Plan Frequency and Duration Frequency of Treatment 2x/Week Duration of Treatment 2 Months Plan of Care Start Date 12/27/18 Plan of Care End Date 02/22/19 Therapeutic Interventions Therapeutic Interventions Home Exercise Program Joint Mobilizations Manual Therapy Patient/Caregiver Education Self-Care/Home Management Soft Tissue Mobilization Therapeutic Activities Therapeutic Exercises Modalities Cold Pack/Ice Massage Electric Stimulation Hot Packs Ultrasound Next Visit Focus/Plan Next Note Type Treatment Note Next Visit Plan STM, Stretching, strengthening for hip/PF/back rehabilitation.
--- NOTE | 2018-12-27 14:14 | PT.OPPOC ---
Current Diagnoses Pain in unspecified hip (12/27/18) Provider Visit Care Team Role Provider Type Silvia Eldridge DO Attending Provider Physician Primary Care Provider Specialty: [facility] Address: [address] [place] [address], [id number] Email: [email or web address] Plan Of Care PT-OP-T Assessment and Plan Start: 10/25/18 09:38 Freq: Status: Active Protocol: Document 12/27/18 12:48 LRN (Rec: 12/27/18 14:13 LRN [id number]) Physical Therapy Assessment Impairments Impairments Pain Soft Tissue Mobility Tone Goals R anterior hip pain Impairment R anterior hip pain limiting nighttime activities Mcc Goal (LTG) Pt will have tolerable pain with intercourse and be able to manage her pain on a home exercise program. LTG Duration 02/22/19 Four Impairment Tenderness to palpation Mcc Goal (LTG) Palpation of piriformis to 1/4 - Complaint of pain LTG Duration 01/22/19 Three Impairment LE weakness Fruit Pitter Goal (LTG) LE MMT grossly 5/5 LTG Duration 01/22/19 Two Impairment Activity participation Short Term Goal (STG) Pt to report no increased pain with housework over a period of two weeks STG Duration 01/22/19 Mcc Goal (LTG) Pt to report no increase pain when pushing her son on a bike over a period of one month. LTG Duration 02/22/19 One Impairment Pt does not have an appropriate home exercise program Short Term Goal (STG) Pt to be independent and complaint with an appropriate HEP STG Duration 02/22/19 Progress Towards Goals Progress Comments Goal #1: Progressing pt on her HEP as appropriate. Goal #2: Overall there are periods of less pain onset. Goal #4: Pain with R Piriformis. Assessment Summary Assessment Pt presents with mild tightness of the PF, decreased fascial mobility of the abdomen on the R anterior groin and L lateral pelvis and abdomen from umbilicus to groin. Her coccyx appears in an extended position causing pain with sitting and her hip mobility is notably restricted on the right with IR. I could not reproduce her symptoms with palpation of the hip or PF. The pt has reported ongoing nausea with a recent 10# weight loss; therefore the pt should return to her primary care physician for a recheck. The pt may benefit from PF stretching once she is cleared from her current illness of ongoing nausea. Physical Therapy Plan Frequency and Duration Frequency of Treatment 2x/Week Duration of Treatment 2 Months Plan of Care Start Date 12/27/18 Plan of Care End Date 02/22/19 Therapeutic Interventions Therapeutic Interventions Home Exercise Program Joint Mobilizations Manual Therapy Patient/Caregiver Education Self-Care/Home Management Soft Tissue Mobilization Therapeutic Activities Therapeutic Exercises Modalities Cold Pack/Ice Massage Electric Stimulation Hot Packs Ultrasound Next Visit Focus/Plan Next Note Type Treatment Note Next Visit Plan STM, Stretching, strengthening for hip/PF/back rehabilitation. Plan of Care Dates Plan of Care Start Date 12/27/18 Plan of Care End Date 02/22/19 Please Sign and Return: I have reviewed this Plan of Care and certify that the skilled therapy services above are required to meet the patient?s needs. Physician Signature Date Printed Name and Credentials Clinical Instructor Signature Printed Name and Credentials
--- NOTE | 2019-03-14 11:06 | PT.OPDS ---
Current Diagnoses Pain in unspecified hip (12/27/18) Provider Visit Care Team Role Provider Type Silvia Eldridge DO Attending Provider Physician Primary Care Provider Specialty: [facility] Address: [address] [place] [address], [facility] Email: [email or web address] Visit Number Visit Number [id number] Discharge Summary PT-OP-B Current Condition Start: 10/25/18 09:38 Freq: Status: Active Protocol: Document 10/24/18 13:45 DCW (Rec: 10/25/18 10:19 DCW [id number]) Current Condition History of Current Condition Onset Date 5 year history Current Complaints Posterior right hip pain with associated radicular right leg symptoms History of Current Condition Pt is a 28 year old female who reports she began having occasional right hip pain periodically following the of her first child five years ago. Pt admits that she is able to work through the pain and do what I need to, but when she has a flare-up, it is difficult to hold her one-year old son or to walk around too much. Pt notes that recently, she has noticed increased frequency of flare- ups, which can last up to a week, or she can go three weeks without any pain. Patient feels pain go from my back hip to my groin, and also notes radiating pain down to her knee and ankle. Pt notes that prior to giving last year, she was seen at this clinic for hip and back pain, and has continued to perform her HEP from then, which includes cat/camel, child's pose, and adductor ball squeeze. Treatment Goals Patient/Caregiver Goals Pt would like to decrease frequency of flare-ups, and to be able to walk and hold her son without worrying about increased pain. Prior Functional Status Baseline Function- ADL's Independent Baseline Function- Mobility Independent Current Functional Impairments (Reported) Functional Limitations- ADL's Housework will occasionally cause flare-ups, as well as pushing her son on a bike PT-OP-C Subjective Start: 10/25/18 09:38 Freq: Status: Active Protocol: Document 12/27/18 12:48 LRN (Rec: 12/27/18 14:13 LRN [id number]) OP-PT Subjective Patient Comments Patient Comments No change. States she has been nauseated but a test was negative. States R hip is sore from the groin, wrapping around to the posterior hip and up the back with intercourse. PT-OP-F Manual Assessment Start: 10/25/18 09:38 Freq: Status: Active Protocol: Document 10/24/18 13:45 DCW (Rec: 10/25/18 10:19 DCW [id number]) Manual Assessments Soft Tissue Assessment Soft Tissue Mobility Assessment Mild tone and 1/4 - Complaint of pain with palpation of right Quadratus Lumborum Severe tone and 3/4 - Wincing and withdraw with palpation of right Piriformis Joint Mobility Assessment Joint Mobility Assessment No pain with palpation of SI or lumbar spine, no pain with hip PROM, loud popping bilaterally in hips with PROM PT-OP-L Special Tests Start: 10/25/18 09:38 Freq: Status: Active Protocol: Document 10/24/18 13:45 DCW (Rec: 10/25/18 10:19 DCW [id number]) Special Tests Lumbar Spine Special Tests Compression Test Results Negative Straight Leg Raise Test Results Pain in R Slump Test Results Pain in R Hip Special Tests Piriformis Test Results Recreates radicular pain with palpation Lateral SI compression Test Results Negative LILIA Test Results Negative Comments Joint popping bilaterally PT-OP-M Strength Start: 10/25/18 09:38 Freq: Status: Active Protocol: Document 10/24/18 13:45 DCW (Rec: 10/25/18 10:19 DCW [id number]) Hip Strength Hip Manual Muscle Testing Right Flexion (L2) 5 Normal Abduction 4 Good Adduction 5 Normal External Rotation 4 Good Internal Rotation 4 Good Left Flexion (L2) 5 Normal Abduction 4+ Good+ Adduction 5 Normal External Rotation 4+ Good+ Internal Rotation 4+ Good+ Knee Strength Knee Manual Muscle Testing Right Flexion (S2) 4 Good Extension (L3) 4+ Good+ Left Flexion (S2) 4 Good Extension (L3) 4+ Good+ Ankle/Foot Strength Ankle and Foot Manual Muscle Testing Right Dorsiflexion (L4) 4+ Good+ Plantarflexion (S1) 4+ Good+ Left Dorsiflexion (L4) 4+ Good+ Plantarflexion (S1) 4+ Good+ PT-OP-T Assessment and Plan Start: 10/25/18 09:38 Freq: Status: Active Protocol: Document 03/14/19 11:01 [facility] (Rec: 03/14/19 11:05 IDW [id number]) Physical Therapy Assessment Goals R anterior hip pain Impairment R anterior hip pain limiting nighttime activities Prison Goal (LTG) Pt will have tolerable pain with intercourse and be able to manage her pain on a home exercise program. LTG Duration 02/22/19 Four Impairment Tenderness to palpation [employer] Operator Goal (LTG) Palpation of piriformis to 1/4 - Complaint of pain LTG Duration 01/22/19 Three Impairment LE weakness Prison Goal (LTG) LE MMT grossly 5/5 LTG Duration 01/22/19 Two Impairment Activity participation Short Term Goal (STG) Pt to report no increased pain with housework over a period of two weeks STG Duration 01/22/19 Prison Goal (LTG) Pt to report no increase pain when pushing her son on a bike over a period of one month. LTG Duration 02/22/19 One Impairment Pt does not have an appropriate home exercise program Short Term Goal (STG) Pt to be independent and complaint with an appropriate HEP STG Duration 02/22/19 Assessment Summary Assessment Following switch from hip/low back PT to Women's Health PT, pt has been unable to consistently attend therapy, and has canceled all scheduled appointments. Pt has now not been seen in more that two months, and will be discharged from skilled therapy at this time. Pt will require a new referrla in order to return to therapy. Physical Therapy Plan Discharge Physical Therapy Discharge Reasons No Longer Attending PT Next Visit Focus/Plan Next Note Type Discharge Summary
== END 2019-03-20 10:56 | disposition home or self-care (01) ==
LOC: PHYS 12:45
PROVIDERS: PCP Family Medicine; Visit Provider Family Medicine
DX: M25.559 Pain in unspecified hip (principal)
CPT/HCPCS: 97110; 97112; 97140; 97161

== ENCOUNTER → 2019-01-26 09:56 | Outpatient (CLI) | payer OTHER, MEDICAID, SELFPAY ==
--- NOTE | 2019-01-26 10:00 | DI.US.S_ITS ---
PROCEDURE: US PELVIC COMPLETE INDICATIONS: ONGOING RIGHT SIDED PELVIC PAIN TECHNIQUE: Real-time scanning was performed of the pelvic organs, with image documentation. Additional endovaginal scanning was necessary due to incomplete visualization of the adnexal and endometrial structures by transabdominal scanning. COMPARISON: [facility], , PELVIC COMPLETE, 05/05/2009, 0:19. FINDINGS: Transabdominal scanning: Limited scanning through the kidneys shows no hydronephrosis. No pathologic free abdominal or pelvic fluid. Endovaginal scanning: Uterus: Uterus is normal in size at 7.2 x 3.7 x 4.6 cm. The endometrium measures approximately 4 mm in combined thickness. Intrauterine device is present and in appropriate position. Ovaries: Right ovary measures 41 19 x 36 mm. Multiple foci of hypoechogenicity are identified the largest measuring 43 x 29 x 41 mm. Left ovary measures 3 4 x 15 x 16 mm and is unremarkable. IMPRESSION: 1. 43 x 29 x 41 mm right ovarian cyst. 2. Intrauterine device is in appropriate position. Dictated by: Maddy Blake M.D. on 01/26/2019 at 14:08 Approved by: Maddy Blake M.D. on 01/26/2019 at 14:12
== END ==
PROVIDERS: PCP Family Medicine; Visit Provider Family Medicine
DX: R10.2 Pelvic and perineal pain (principal); N83.201 Unspecified ovarian cyst, right side; Z97.5 Presence of (intrauterine) contraceptive device
CPT/HCPCS: 76830; 76856

== ENCOUNTER → 2019-09-28 15:07 | Outpatient (CLI) | payer OTHER, MEDICAID, SELFPAY ==
[2019-09-28 15:38] LABS: Add Manual Diff / Slide Review NO; Basophils Absolute Auto 100 /uL (0-100); Basophils Percent Auto 0.7 % (0-2); Eosinophils Absolute Auto 200 /uL (0-450); Hematocrit 40.5 % (36-46); Hemoglobin 13.5 g/dL (12.0-16.0); Lymphocytes Absolute Auto 2100 /uL (1100-4500); Lymphocytes Percent Auto 22.5 % (25-40); Mean Corpuscular HGB Conc 33.2 % (30-36); Mean Corpuscular Hemoglobin 31.3 PG (26-34); Mean Corpuscular Volume 94.3 fL (80-100); Monocytes Absolute Auto 700 /uL (0-900); Monocytes Percent Auto 7.5 % (3-14); Neutrophils Absolute Auto 6300 /uL (1500-7000); Neutrophils Percent Auto 67.3 % (50-75); Platelet Count 277 X10^3/uL (150-400); Red Blood Cell Count 4.29 X10^6/uL (4.0-5.2); Red Cell Distribution Width 12.8 % (11.6-14.8); White Blood Cell Count 9.3 X10^3/uL (4.5-11.0)
[2019-09-28 16:11] LABS: Alanine Aminotransferase 19 IU/L (<35); Albumin 4.8 g/dL (3.5-5.0); Albumin Globulin Ratio 1.9 (1.0-2.8); Alkaline Phosphatase 44 U/L (38-126); Aspartate Aminotransferase 24 IU/L (14-36); Bilirubin Total 0.3 mg/dL (0.2-1.3); Blood Urea Nitrogen 13 mg/dL (7-17); Calcium 9.9 mg/dL (8.4-10.2); Carbon Dioxide 28 mmol/L (22-32); Chloride 104 mmol/L (98-107); Estimated Glomerular Filt Rate > 60.0 mL/min (>60); Globulin 2.5 g/dL (1.7-4.1); Glucose 86 mg/dL (70-100); HEMOLYSIS < 15 (0-50); Sodium 140 mmol/L (137-145); Total Protein 7.3 g/dL (6.3-8.2)
[2019-09-28 16:41] LABS: TSH w/ Reflex to FT4 0.65 uIU/mL (0.47-4.68)
== END ==
PROVIDERS: PCP Family Medicine; Visit Provider Family Medicine
DX: R63.4 Abnormal weight loss (principal)
CPT/HCPCS: 36415; 80053; 84443; 85025

== ENCOUNTER → 2019-12-28 12:16 | Outpatient (CLI) | payer OTHER, MEDICAID, SELFPAY | PROVIDERS: PCP Family Medicine; Visit Provider Family Medicine | DX: J02.9 Acute pharyngitis, unspecified (principal) | CPT/HCPCS: 87070; 87147 ==

== ENCOUNTER → 2021-06-13 14:09 | Outpatient (CLI) | payer OTHER, MEDICAID, SELFPAY ==
--- NOTE | 2021-06-13 14:12 | DI.RAD.S_ITS ---
PROCEDURE: XR LUMBAR SPINE 2-3V INDICATIONS: Right SI joint pain, not improved with PT TECHNIQUE: 2 views of the lumbar spine were acquired. COMPARISON: None. FINDINGS: Bones: 5 [id number] vertebrae are present. There is normal bony alignment. No vertebral body compression fractures. No suspicious bony lesions. Soft tissues: Overlying bowel gas pattern is normal. No suspicious soft tissue calcifications. Intrauterine device projected over the mid pelvis. IMPRESSION: Trace dextrocurvature; otherwise normal lumbar spine. Dictated by: on 06/13/2021 at 14:39 Transcribed by: on 06/13/2021 at 14:39 Approved by: Zhang zAul M.D. on 06/17/2021 at 11:25
--- NOTE | 2021-06-13 14:12 | DI.RAD.S_ITS ---
PROCEDURE: XR SACROILIAC JOINT MIN 3V INDICATIONS: Right SI joint pain, not improved with PT TECHNIQUE: 3 views of the sacroiliac joints were acquired. COMPARISON: [facility], , XR LUMBAR SPINE 2-3V, 06/13/2021, 14:21. FINDINGS: Bones: No bony erosions or ankylosis. No suspicious bony lesions. No fractures. Soft tissues: Overlying bowel gas pattern is normal. No suspicious soft tissue densities. IUD projected over the mid pelvis. IMPRESSION: Normal appearance of the SI joints. Dictated by: [facility] Interpreted: Braxton Azul MD on 06/13/2021 at 14:46 Transcribed by: AVILA on 06/13/2021 at 14:47 Approved by: Zhang Azul M.D. on 06/17/2021 at 11:25
== END ==
PROVIDERS: PCP Family Medicine; Referring Provider Family Medicine; Visit Provider Family Medicine
DX: G89.29 Other chronic pain (principal); M53.3 Sacrococcygeal disorders, not elsewhere classified
CPT/HCPCS: 72100; 72202

== ENCOUNTER → 2021-06-23 11:03 | Outpatient (CLI) | payer OTHER, MEDICAID, SELFPAY ==
--- NOTE | 2021-06-23 11:05 | DI.RAD.S_ITS ---
PROCEDURE: XR T AND L SPINE 4 TO 5 VIEWS INDICATIONS: scoliosis TECHNIQUE: 2 views acquired of the thoracolumbar spine. COMPARISON: None. FINDINGS: Bones: There is S-shaped curvature of the thoracolumbar spine with curvature to the left and the apex at T10 with a Palafox angle of 8? and curvature to the right with the apex at L2 and a Palafox angle of 4?. No acute fractures or dislocations. Visualized inferior ribs appear intact. No suspicious bony lesions. The lungs are hyperexpanded. Soft tissues: No suspicious soft tissue calcifications. An IUD is positioned centrally in the pelvis. IMPRESSION: S-shaped curvature of the thoracolumbar spine with apex curvature to the left at T10 and a Palafox angle of 8? and apex curvature to the right at L2 and a Palafox angle of 4?. Dictated by: Zhang Azul M.D. on 06/23/2021 at 16:18 Approved by: Zhang Azul M.D. on 06/23/2021 at 16:20
== END ==
PROVIDERS: PCP Family Medicine; Referring Provider Family Medicine; Visit Provider Family Medicine
DX: M41.9 Scoliosis, unspecified (principal)
CPT/HCPCS: 72083

== ENCOUNTER → 2022-07-13 12:17 | Outpatient (CLI) | payer OTHER, MEDICAID, SELFPAY ==
--- NOTE | 2022-07-13 12:19 | DI.RAD.S_ITS ---
PROCEDURE: XR CERVICAL SPINE 2V OR 3V INDICATIONS: scoliosis TECHNIQUE: 3 view(s) of the cervical spine were acquired. COMPARISON: None. FINDINGS: Bones: No fractures or dislocations to the T1 level. The lateral masses of C1 appear intact on the odontoid view. No suspicious bony lesions. Soft tissues: No prevertebral soft tissue swelling. IMPRESSION: Normal cervical spine. No curvature identified. Dictated by: Zhang Azul M.D. on 07/13/2022 at 14:01 Approved by: Zhang Azul M.D. on 07/13/2022 at 14:02
--- NOTE | 2022-07-13 12:19 | DI.RAD.S_ITS ---
PROCEDURE: XR T AND L SPINE 4 TO 5 VIEWS INDICATIONS: scoliosis TECHNIQUE: 2 views acquired of the thoracolumbar spine. COMPARISON: [facility], , XR T AND L SPINE 4 TO 5 VIEWS, 06/23/2021, 11:03. FINDINGS: Bones: No acute fractures or dislocations. Visualized inferior ribs appear intact. No suspicious bony lesions. Left apex scoliosis of the thoracolumbar spine is seen with the left apex at T11 and a Palafox angle of 11?. No vertebral body anomalies are identified. Soft tissues: No suspicious soft tissue calcifications. An IUD is seen in the pelvis. IMPRESSION: Levocurvature of the thoracolumbar spine with the apex at T10 and a Palafox angle of 11?. Previously there was a slightly S-shaped curvature which was probably due to positioning at that time. Overall there is no significant change when comparing today's study to 06/23/2021 [id number]. Dictated by: Zhang Azul M.D. on 07/13/2022 at 14:02 Approved by: Zhang Azul M.D. on 07/13/2022 at 14:06
== END ==
PROVIDERS: PCP Family Medicine; Referring Provider Family Medicine; Visit Provider Family Medicine
DX: M41.9 Scoliosis, unspecified (principal)
CPT/HCPCS: 72040; 72083

== ENCOUNTER → 2022-09-16 11:47 | Outpatient (CLI) | payer OTHER, MEDICAID, SELFPAY ==
[2022-09-16 12:55] LABS: Add Manual Diff / Slide Review NO; Basophils Absolute Auto 0 /uL (0-100); Basophils Percent Auto 0.7 % (0-2); Eosinophils Absolute Auto 0 /uL (0-450); Eosinophils Percent Auto 0.7 % (2-4); Hematocrit 36.8 % (36-46); Hemoglobin 12.5 g/dL (12.0-16.0); Lymphocytes Absolute Auto 1000 /uL (1100-4500); Lymphocytes Percent Auto 16.8 % (25-40); Mean Corpuscular Hemoglobin 31.5 PG (26-34); Mean Corpuscular Volume 92.7 fL (80-100); Monocytes Absolute Auto 500 /uL (0-900); Neutrophils Absolute Auto 4500 /uL (1500-7000); Neutrophils Percent Auto 73.8 % (50-75); Platelet Count 262 X10^3/uL (150-400); Red Blood Cell Count 3.97 X10^6/uL (4.0-5.2); Red Cell Distribution Width 12.5 % (11.6-14.8); White Blood Cell Count 6.1 X10^3/uL (4.5-11.0)
[2022-09-16 13:07] LABS: HEMOLYSIS < 15 (0-50); Iron 140 ug/dL (37-170)
[2022-09-16 13:09] LABS: Alanine Aminotransferase 31 IU/L (<35); Albumin 4.7 g/dL (3.5-5.0); Albumin Globulin Ratio 1.6 (1.0-2.8); Alkaline Phosphatase 38 U/L (38-126); Aspartate Aminotransferase 34 IU/L (14-36); BUN Creatinine Ratio 16.4 (6-22); Bilirubin Total 0.4 mg/dL (0.2-1.3); Blood Urea Nitrogen 9 mg/dL (7-17); Calcium 9.3 mg/dL (8.4-10.2); Carbon Dioxide 27 mmol/L (22-32); Chloride 104 mmol/L (98-107); Estimated Glomerular Filt Rate > 60 mL/min (>60); Globulin 2.9 g/dL (1.7-4.1); Glucose 88 mg/dL (70-100); HEMOLYSIS < 15 (0-50); Sodium 142 mmol/L (137-145); Total Protein 7.6 g/dL (6.3-8.2)
[2022-09-16 13:18] LABS: Percent Iron Saturation 49 % (15-50); Total Iron Binding Capacity 283 ug/dL (265-497); Transferrin 197 mg/dL (206-381)
[2022-09-16 13:39] LABS: TSH w/ Reflex to FT4 0.98 uIU/mL (0.47-4.68)
== END ==
PROVIDERS: PCP Family Medicine; Referring Provider Physician Assistant; Visit Provider Physician Assistant
DX: R00.2 Palpitations (principal); R06.00 Dyspnea, unspecified; R53.83 Other fatigue
CPT/HCPCS: 36415; 80053; 83540; 83550; 84443; 85025

== ENCOUNTER → 2023-04-09 10:44 | Outpatient (CLI) | payer OTHER, MEDICAID, SELFPAY ==
--- NOTE | 2023-04-09 10:45 | DI.RAD.S_ITS ---
PROCEDURE: FL BARIUM SWALLOW INDICATIONS: Pain right side w/swallowing COMPARISON: None. FINDINGS: Function: There is normal esophageal peristalsis. No elicited gastroesophageal reflux. There is normal transit of a calibrated barium tablet through the esophagus into the stomach. Morphology: Air-contrast images demonstrate normal mucosal morphology. Single contrast views show no esophageal strictures, extrinsic mass effects, or diverticula. Limited images of the stomach demonstrate normal appearance. IMPRESSION: Normal barium swallow exam. A cause for pain with swallowing is not identified. If clinically indicated, modified barium swallow with speech pathology may be helpful. Dictated by: Jimmy Castro M.D. on 04/09/2023 at 11:56 Approved by: Jimmy Castro M.D. on 04/09/2023 at 11:56
== END ==
PROVIDERS: PCP Family Medicine; Referring Provider Physician Assistant; Visit Provider Physician Assistant
DX: R13.10 Dysphagia, unspecified (principal)
CPT/HCPCS: 74220

== ENCOUNTER → 2024-01-14 10:18 | Outpatient (CLI) | payer OTHER, MEDICAID, SELFPAY ==
[2024-01-14 11:39] LABS: Add Manual Diff / Slide Review NO; Basophils Absolute Auto 0 /uL (0-100); Basophils Percent Auto 0.9 % (0-2); Eosinophils Absolute Auto 100 /uL (0-450); Eosinophils Percent Auto 1.3 % (2-4); Hematocrit 37.1 % (36-46); Hemoglobin 12.6 g/dL (12.0-16.0); Lymphocytes Absolute Auto 1100 /uL (1100-4500); Lymphocytes Percent Auto 21.1 % (25-40); Mean Corpuscular Hemoglobin 31.9 PG (26-34); Mean Corpuscular Volume 93.9 fL (80-100); Monocytes Absolute Auto 500 /uL (0-900); Monocytes Percent Auto 10.2 % (3-14); Neutrophils Absolute Auto 3400 /uL (1500-7000); Neutrophils Percent Auto 66.5 % (50-75); Platelet Count 254 X10^3/uL (150-400); Red Blood Cell Count 3.95 X10^6/uL (4.0-5.2); Red Cell Distribution Width 12.6 % (11.6-14.8); White Blood Cell Count 5.2 X10^3/uL (4.5-11.0)
[2024-01-14 12:00] LABS: Alanine Aminotransferase 50 IU/L (<35); Albumin 4.6 g/dL (3.5-5.0); Albumin Globulin Ratio 1.6 (1.0-2.8); Alkaline Phosphatase 35 U/L (38-126); Aspartate Aminotransferase 59 IU/L (14-36); Bilirubin Total 0.6 mg/dL (0.2-1.3); Blood Urea Nitrogen 10 mg/dL (7-17); Calcium 9.6 mg/dL (8.4-10.2); Carbon Dioxide 25 mmol/L (22-32); Chloride 105 mmol/L (98-107); Estimated Glomerular Filt Rate > 60 mL/min (>60); Globulin 2.8 g/dL (1.7-4.1); Glucose 90 mg/dL (70-100); HEMOLYSIS < 15 (0-50); Potassium 4.1 mmol/L (3.4-5.1); Sodium 139 mmol/L (137-145); Total Protein 7.4 g/dL (6.3-8.2)
== END ==
PROVIDERS: PCP Family Medicine; Referring Provider Family Medicine; Visit Provider Family Medicine
DX: R10.11 Right upper quadrant pain (principal); R07.81 Pleurodynia
CPT/HCPCS: 36415; 80053; 85025

== ENCOUNTER → 2024-05-17 15:07 | Outpatient (CLI) | payer OTHER, MEDICAID, SELFPAY ==
[2024-05-17 17:16] LABS: Hematocrit 35.8 % (36-46); Hemoglobin 12.2 g/dL (12.0-16.0)
[2024-05-17 17:36] LABS: Alanine Aminotransferase 17 IU/L (<35); Albumin 4.6 g/dL (3.5-5.0); Albumin Globulin Ratio 1.8 (1.0-2.8); Alkaline Phosphatase 41 U/L (38-126); Aspartate Aminotransferase 23 IU/L (14-36); Bilirubin Total 0.5 mg/dL (0.2-1.3); Bilirubin Unconjugated 0.1 mg/dL (0.0-1.1); Globulin 2.5 g/dL (1.7-4.1); HEMOLYSIS < 15 (0-50); Total Protein 7.1 g/dL (6.3-8.2)
[2024-05-17 17:38] LABS: Iron 119 ug/dL (37-170)
[2024-05-17 18:27] LABS: Vitamin B12 291 pg/mL (239-931)
== END ==
PROVIDERS: PCP Family Medicine; Referring Provider Physician Assistant; Visit Provider Family Medicine
DX: R53.83 Other fatigue (principal); L65.9 Nonscarring hair loss, unspecified; R79.89 Other specified abnormal findings of blood chemistry
CPT/HCPCS: 36415; 80076; 82607; 83540; 84443; 85014; 85018

== ENCOUNTER → 2024-05-29 16:13 | Outpatient (CLI) | payer OTHER, MEDICAID, SELFPAY ==
--- NOTE | 2024-05-29 16:14 | DI.US.S_ITS ---
PROCEDURE: US PELVIC COMPLETE INDICATIONS: RLQ pain; Mirena in place; large ENDOcervical polyp/mass TECHNIQUE: Real-time scanning was performed of the pelvic organs, with image documentation. Additional endovaginal scanning was necessary due to incomplete visualization of the adnexal and endometrial structures by transabdominal scanning. COMPARISON: [facility], , US PELVIC COMPLETE, 01/26/2019, 10:24. FINDINGS: Uterus: Uterus is retroverted and normal in size at 8.0 x 6.1 x 3.9 cm. The myometrium is homogeneous. The endometrium measures 3 mm combined thickness. IUD is in appropriate location. Nabothian cysts are present. Ovaries: The right ovary measures 5.9 x 3.3 x 3.4 cm, with a calculated ovarian volume of 35 cc. The left ovary measures 4.0 x 2.2 x 1.6 cm, with a calculated ovarian volume of 7.4 cc. Multiple follicles are noted on the right as well as a complex cysts, the latter measuring 2.6 cm. Somewhat complex appearing cyst is present on the left measuring 1.9 cm. Overall appearance has not significantly changed compared to 2019. Other: No pathologic free abdominal or pelvic fluid. IMPRESSION: Relatively stable appearance of complex ovarian cysts as well as nabothian cysts. We strive to produce accurate, complete, and clear reports of imaging services. To assist us in improving patient care, this report was composed using standard report templates and voice recognition software. Therefore, it may contain abnormal punctuation, insertions and/or omissions. Occasional wrong-word or sound-alike substitutions may occur. Though we review the report and make efforts to correct it, we do recommend that the report be read carefully in proper context to recognize any text inaccuracies. Dictated by: Maddy Blake M.D. on 05/29/2024 at 17:47 Approved by: Maddy Blake M.D. on 05/29/2024 at 17:48
== END ==
PROVIDERS: PCP Family Medicine; Referring Provider Physician Assistant; Visit Provider Physician Assistant
DX: N83.292 Other ovarian cyst, left side (principal); N88.8 Other specified noninflammatory disorders of cervix uteri; R10.31 Right lower quadrant pain; Z97.5 Presence of (intrauterine) contraceptive device
CPT/HCPCS: 76830; 76856

== ENCOUNTER → 2024-08-21 11:55 | Outpatient (CLI) | payer OTHER, MEDICAID, SELFPAY ==
--- NOTE | 2024-08-21 12:15 | DI.US.S_ITS ---
PROCEDURE: US PELVIC COMPLETE INDICATIONS: ovarian cyst TECHNIQUE: Real-time scanning was performed of the pelvic organs, with image documentation. Additional endovaginal scanning was necessary due to incomplete visualization of the adnexal and endometrial structures by transabdominal scanning. COMPARISON: [facility], , US PELVIC COMPLETE, 05/29/2024, 16:24. FINDINGS: Uterus: Uterus is anteverted and normal in size at 7.9 x 5.9 x 4 cm. The myometrium is homogeneous. The endometrium measures 3 mm combined thickness. No fibroids. IUD is centered in the endometrial cavity. Ovaries: The right ovary measures 3.3 x 3.3 x 1.3 cm, with a calculated ovarian volume of 14 cc. The left ovary measures 5.1 x 3.3 x 2.2 cm, with a calculated ovarian volume of 19 cc. The ovaries have a normal sonographic appearance. Less than 12 follicles can be seen in each ovary. No adnexal masses are seen. Simple left ovarian cyst measuring 2.9 cm. Previously seen complex cysts are no longer present. Other: No pathologic free abdominal or pelvic fluid. Prominent pelvic veins. This finding could be seen in multiparous women or pelvic congestion syndrome. IMPRESSION: 1. Resolved complex ovarian cysts. 2. Simple left ovarian cyst measuring 2.9 cm. 3. IUD centered in the endometrial cavity. No endometrial thickening. We strive to produce accurate, complete, and clear reports of imaging services. To assist us in improving patient care, this report was composed using standard report templates and voice recognition software. Therefore, it may contain abnormal punctuation, insertions and/or omissions. Occasional wrong-word or sound-alike substitutions may occur. Though we review the report and make efforts to correct it, we do recommend that the report be read carefully in proper context to recognize any text inaccuracies. Dictated by: Carlos Orona M.D. on 08/21/2024 at 14:08 Approved by: Carlos Orona M.D. on 08/21/2024 at 14:15
== END ==
LOC: US 11:56
PROVIDERS: PCP Family Medicine; Referring Provider Obstetrics & Gynecology; Visit Provider Obstetrics & Gynecology
DX: N83.292 Other ovarian cyst, left side (principal); N83.201 Unspecified ovarian cyst, right side; N84.1 Polyp of cervix uteri; R10.2 Pelvic and perineal pain; Z97.5 Presence of (intrauterine) contraceptive device
CPT/HCPCS: 76830; 76856

== ENCOUNTER → 2024-08-24 09:45 | Outpatient (CLI) | payer OTHER, MEDICAID, SELFPAY | PROVIDERS: PCP Family Medicine; Referring Provider Family Medicine; Visit Provider Family Medicine | DX: R00.0 Tachycardia, unspecified (principal) | CPT/HCPCS: 93242; 93244 ==

== ENCOUNTER → 2024-12-12 10:26 | Outpatient (CLI) | payer OTHER, SELFPAY ==
[2024-12-12 11:41] LABS: Add Manual Diff / Slide Review NO; Basophils Absolute Auto 0 /uL (0-100); Basophils Percent Auto 0.6 % (0-2); Eosinophils Absolute Auto 100 /uL (0-450); Hemoglobin 12.9 g/dL (12.0-16.0); Lymphocytes Absolute Auto 1100 /uL (1100-4500); Lymphocytes Percent Auto 28.9 % (25-40); Mean Corpuscular HGB Conc 33.1 % (30-36); Mean Corpuscular Volume 93.7 fL (80-100); Monocytes Absolute Auto 400 /uL (0-900); Monocytes Percent Auto 9.5 % (3-14); Neutrophils Absolute Auto 2200 /uL (1500-7000); Platelet Count 246 X10^3/uL (150-400); Red Blood Cell Count 4.17 X10^6/uL (4.0-5.2); Red Cell Distribution Width 12.6 % (11.6-14.8); White Blood Cell Count 3.9 X10^3/uL (4.5-11.0)
[2024-12-12 12:14] LABS: Alanine Aminotransferase 29 IU/L (<35); Albumin 4.9 g/dL (3.5-5.0); Alkaline Phosphatase 38 U/L (38-126); Aspartate Aminotransferase 34 IU/L (14-36); Bilirubin Total 0.4 mg/dL (0.2-1.3); Blood Urea Nitrogen 8 mg/dL (7-17); Carbon Dioxide 28 mmol/L (22-32); Chloride 106 mmol/L (98-107); Estimated Glomerular Filt Rate > 60 mL/min (>60); Globulin 2.4 g/dL (1.7-4.1); Glucose 82 mg/dL (70-100); HEMOLYSIS < 15 (0-50); Lipase 119 U/L (23-300); Potassium 4.5 mmol/L (3.4-5.1); Sodium 140 mmol/L (137-145); Total Protein 7.3 g/dL (6.3-8.2)
[2024-12-12 13:02] LABS: Vitamin B12 371 pg/mL (239-931)
[2024-12-14 16:08] LABS: Deamidated Gliadin Ab IgA 5 units (0-19); Deamidated Gliadin Ab IgG 3 units (0-19); Immunoglobulin A,Qn 235 mg/dL (87-352); t-Transglutaminase IgA <2 U/mL (0-3)
== END ==
PROVIDERS: PCP Family Medicine; Referring Provider Family Medicine; Visit Provider Family Medicine
DX: R10.9 Unspecified abdominal pain (principal); E53.8 Deficiency of other specified B group vitamins; R19.5 Other fecal abnormalities
CPT/HCPCS: 36415; 80053; 82607; 82784; 83516; 83690; 85025

== ENCOUNTER → 2025-10-04 08:58 | Outpatient (CLI) | payer OTHER, SELFPAY ==
[2025-10-04 10:30] LABS: TSH w/ Reflex to FT4 0.84 uIU/mL (0.47-4.68)
[2025-10-04 10:33] LABS: Cortisol AM (Before 10AM) 5.99 ug/dL (4.46-22.7)
[2025-10-04 11:06] LABS: Follicle Stimulating Hormone 6.07 mIU/mL
[2025-10-04 11:21] LABS: Estradiol, Total 46.1 pg/mL
== END ==
PROVIDERS: PCP Family Medicine; Referring Provider Family Medicine; Visit Provider Family Medicine
DX: L65.9 Nonscarring hair loss, unspecified (principal); G43.019 Migraine without aura, intractable, without status migrainosus; F41.1 Generalized anxiety disorder
CPT/HCPCS: 36415; 82533; 82670; 83001; 83002; 84443